=== PATIENT | male | born 1940 | race African-American/Black ===

== ENCOUNTER → 2017-06-20 | Outpatient (CLI) | payer MEDICARE, OTHER ==
--- NOTE | 2017-06-20 10:54 | RADIOLOGY REPORT (SQ) ---
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 Selected color Doppler and spectral images recorded to document blood flow. LIMITATIONS: None. FINDINGS: RIGHT: TESTICLE: Normal size, 2.9 x 4.9 x 1.5 cm. Normal echotexture. Normal blood flow. No mass. EPIDIDYMIS: Normal, 6 x 4 x 4 mm. HYDROCELE OR VARICOCELE: No. HERNIA OR EXTRA-TESTICULAR MASS: No. OTHER: No other significant finding. LEFT: TESTICLE: Small, 2.3 x 2 x 2 cm. Somewhat heterogeneous echotexture with no definable mass. EPIDIDYMIS: Normal. 6 x 5 x 6 mm. HYDROCELE OR VARICOCELE: There is a 3 x 1.4 x 1.9 cm hydrocele. The varicocele described in the left scrotum on the prior study is not identified. HERNIA OR EXTRA-TESTICULAR MASS: No. OTHER: The wall of the scrotum is slightly thickened at 7 mm. IMPRESSION: 1. Small, slightly heterogeneous left testicle. No definable mass. 2. Left hydrocele. 3. Slight thickening of the scrotal wall. TECHNICAL DOCUMENTATION: JOB ID: [id number] [employer]- All Rights Reserved Reading location - IP/workstation name: [email or web address]
== END ==
LOC: RAD 09:20
PROVIDERS: ATTEND Urology
DX: N50.9 Disorder of male genital organs, unspecified (principal)
CPT/HCPCS: 76870; 93976

== ENCOUNTER → 2018-06-24 | Outpatient (CLI) | payer MEDICARE, OTHER ==
--- NOTE | 2018-06-24 15:17 | RADIOLOGY REPORT (SQ) ---
EXAM DESCRIPTION: CT PELVIS COMBO COMPLETED DATE/TIME: 06/24/2018 2:13 pm REASON FOR STUDY: R19.09 OTHER INTRA-ABDOMINAL AND PELVIC SWELLING, MASS AND LUMP R19.09 OTHER INTR A-ABDOMINAL AND PELVIC SWELLING, MASS AND L COMPARISON: None. TECHNIQUE: CT scan of the pelvis performed without and with intravenous contrast. Patient was injected with 83 mL of IV Omnipaque 350. Creatinine 1.2. No oral contrast Images reviewed with soft tissue and bone windows. Reconstructed coronal and sagittal MPR images rev iewed. All images stored on PACS. All CT scanners at this facility use dose modulation, iterative reconstruction, and/or weight based d osing when appropriate to reduce radiation dose to as low as reasonably achievable (ALARA). [facility]: Dose Right [facility]: CareDose [facility]: Dose Right [facility]: Teradose 4D [facility]: Smart Stockr RADIATION DOSE: CT Rad equipment meets quality standard of care and radiation dose reduction techniq ues were employed. CTDIvol: 8.8 - 8.8 mGy. DLP: 1276 mGy-cm. mGy. LIMITATIONS: None. FINDINGS: There is focal swelling along the right inguinal canal, of with soft tissue stranding and inflammation in the subcutaneous fat. No right inguinal hernia is identified. This may represent in flammation or infection along the spermatic cord from epididymo-orchitis. At the bottom edge of the field of view, trace bilateral scrotal hydroceles are present. On the left side, there is mild infla mmation along the inguinal canal/spermatic cord. No adjacent skin cellulitis. Bilateral inguinal ly mph nodes are present measuring about 1 cm in size. The urinary bladder is abnormal. On delayed images 60-67, diffuse thickening of the bladder wall thomas ng the bladder trigone is present worrisome for diffuse tumor involvement. There is circumferential rectal wall thickening and distal sigmoid colon wall thickening on axial modesta ges 57-73. Correlate clinically for colitis. Trace free pelvic cul-de-sac fluid. Bone windows demonstrate no fracture. Mild bilateral hip joint space narrowing. Mild SI joint scler osis. 2 cm diameter right proximal common iliac artery. Visualized infrarenal abdominal aorta and left pro ximal common iliac artery are normal caliber. At the very upper edge of the field of view, tiny stones are seen in the gallbladder. IMPRESSION: Bilateral infectious or inflammatory change in the inguinal canals right greater than le ft thickening of the spermatic cord, and inflammation in the fat along the inguinal regions right gre ater than left. Findings are worrisome for inflammation along the spermatic cord, consider bilateral epididymo-orchitis as the etiology. Findings worrisome for diffuse bladder tumor involvement at the bladder trigone. TECHNICAL DOCUMENTATION: JOB ID: [id number] Quality ID # [id number]: Final reports with documentation of one or more dose reduction techniques (e.g., Au tomated exposure control, adjustment of the mA and/or kV according to patient size, use of iterative reconstruction technique) 2010 [employer]- All Rights Reserved Reading location - IP/workstation name: [email or web address]
== END ==
LOC: RAD 13:02
PROVIDERS: ATTEND Urology
DX: K80.80 Other cholelithiasis without obstruction (principal); R19.09 Other intra-abdominal and pelvic swelling, mass and lump
CPT/HCPCS: 72194; 82565

== ENCOUNTER → 2018-09-15 | Outpatient (CLI) | payer MEDICARE, OTHER ==
--- NOTE | 2018-09-16 11:17 | RADIOLOGY REPORT (SQ) ---
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 RADIONUCLIDE AND DOSE: 11.42 mCi F18 FDG The route of agent administration: Intravenous FASTING BLOOD SUGAR: 103 mg/dl CONTRAST TYPE AND DOSE: No CT contrast given. TECHNIQUE: Blood glucose level was verified. Above dose of FDG was injected intravenously. 2-D seg mented attenuation correction images were obtained from the base of the skull to the midthighs. Nonc ontrast CT images were obtained for attenuation correction and fusion with emission images. CT image s were performed without oral or intravenous contrast and are not sensitive for parenchymal lesions. A series of overlapping emission PET images were obtained. Images reviewed and manipulated at [facility] work station by the radiologist. Images stored on PACS. LIMITATIONS: None. FINDINGS: HEAD AND NECK: No areas of abnormal metabolic activity in the soft tissues of the head and neck. CHEST: No areas of abnormal metabolic activity in the chest. ABDOMEN AND PELVIS: No areas of abnormal metabolic activity in the abdomen or pelvis. Expected physi ologic activity is present in the genitourinary system and bowel. PROXIMAL LOWER EXTREMITIES: No areas of abnormal metabolic activity in the soft tissues of the lower extremities. BONES: Increased uptake 6.9 SUV in the left anterior pubis. No corresponding morphologic lesion. Lo w level uptake 2.2 SUV in the right inguinal canal. ADDITIONAL CT FINDINGS: No additional significant findings on the noncontrast CT images. OTHER: Blood pool 1.9 SUV. Liver 2.5 SUV. IMPRESSION: Hypermetabolic focus left symphysis pubis without corresponding morphologic lesion. No evidence of distant metastasis. TECHNICAL DOCUMENTATION: JOB ID: [id number] [employer]- All Rights Reserved Reading location - IP/workstation name: [email or web address]
== END ==
LOC: RAD 18:05
PROVIDERS: ATTEND Internal Medicine Medical Oncology
DX: C16.8 Malignant neoplasm of overlapping sites of stomach (principal)
CPT/HCPCS: 78815; A9552

== ENCOUNTER 2018-10-25 09:06 | Emergency (ER) | payer MEDICARE, OTHER ==
--- NOTE | 2018-10-25 10:56 | ER Document Report ---
ED Medical Screen (RME) - General Chief Complaint: Back Pain Stated Complaint: BACK PAIN, RIGHT LEG PAIN Time Seen by Provider: 10/25/18 10:50 Primary Care Provider: ELIEZER ORTEZ MD [Primary Care Provider] - Follow up as needed Mode of Arrival: Wheelchair Information source: Patient Notes: 78 yo male presents to ed for back pain since and cannot walk due to pain in foot and knee. Patient is alert oriented respirations regular and unlabored speaking in full sentences. He is answering all questions appropriately. He states his family is at the bedside. He does have a bruised swollen toe which is the reason he states he cannot walk he also has a swollen knee. These were also x-rayed as well as the low back. I have greeted and performed a rapid initial assessment of this patient. A comprehensive ED assessment and evaluation of the patient, analysis of test results and completion of medical decision making process will be conducted by an additional ED providers. TRAVEL OUTSIDE OF THE [place] IN LAST 30 DAYS: No - Related Data Allergies/Adverse Reactions: Tuberculin,Ppd,Multi-Puncture [From Tuberculin PPD Yolanda Test] Allergy (Mild, Verified 08/14/11 16:14) Past Medical History - Social History Cigarette use (# per day): No - former Frequency of alcohol use: None Drug Abuse: None Lives with: Family - Past Medical History Cardiac Medical History: Reports: Hx Hypertension Denies: Hx Hypercholesterolemia EENT Medical History: Denies: None, Eyes, Ears, Nose, Throat, Other Neurological Medical History: Reports: None Endocrine Medical History: Reports: None Renal/ Medical History: Reports: None Malignancy Medical History: Reports Hx Prostate Cancer, Reports Other - stomach GI Medical History: Reports: Hx Colonoscopy, Hx Endoscopy Musculoskeltal Medical History: Reports None Skin Medical History: Reports None Psychiatric Medical History: Reports: None Traumatic Medical History: Reports: None Infectious Medical History: Reports: None. Denies: Hx Hepatitis Past Surgical History: Reports: Hx Abdominal Surgery - Immunizations Hx Diphtheria, Pertussis, Tetanus Vaccination: Yes Physical Exam - Vital signs Vitals: Temp Pulse Resp BP Pulse Ox 98.7 F 74 20 146/88 H 100 10/25/18 09:16 10/25/18 09:16 10/25/18 09:16 10/25/18 09:16 10/25/18 09:16 Course - Vital Signs Vital signs: Temp Pulse Resp BP Pulse Ox 98.7 F 74 20 146/88 H 100 10/25/18 09:16 10/25/18 09:16 10/25/18 09:16 10/25/18 09:16 10/25/18 09:16 - Laboratory Result Diagrams: 10/25/18 11:30 10/25/18 11:30 Doctor's Discharge - Discharge Referrals: ELIEZER ORTEZ MD [Primary Care Provider] - Follow up as needed
[2018-10-25 11:49] LABS: HEMATOCRIT 33.5 % (37.9-51.0); HEMOGLOBIN 11.3 g/dL (13.5-17.0); MEAN CORPUSCULAR HEMOGLOBIN 29.3 pg (27.0-33.4); MEAN CORPUSCULAR HGB CONC 33.6 g/dL (32.0-36.0); MEAN CORPUSCULAR VOLUME 87 fl (80-97); PLATELET COUNT 197 10^3/uL (150-450); RED BLOOD COUNT 3.84 10^6/uL (4.35-5.55); RED CELL DISTRIBUTION WIDTH 14.4 % (11.5-14.0); WHITE BLOOD COUNT 9.5 10^3/uL (4.0-10.5)
[2018-10-25 12:22] LABS: ANISOCYTOSIS SLIGHT; BASOPHILS % (MANUAL) 1 % (0-2); EOSINOPHILS % (MANUAL) 0 % (0-6); LYMPHOCYTES % (MANUAL) 11 % (13-45); MONOCYTES % (MANUAL) 10 % (3-13); PLATELET COMMENT ADEQUATE; SEGMENTED NEUTROPHILS % (MAN) 78 % (42-78); TOTAL CELLS COUNTED 100
--- NOTE | 2018-10-25 13:19 | ER Document Report ---
ED General Pain - General Chief Complaint: Back Pain Stated Complaint: BACK PAIN, RIGHT LEG PAIN Time Seen by Provider: 10/25/18 10:50 Primary Care Provider: ELIEZER ORTEZ MD [Primary Care Provider] - Follow up in 3-5 days Mode of Arrival: Wheelchair TRAVEL OUTSIDE OF THE [place] IN LAST 30 DAYS: No - HPI Notes: Patient presents with lower bilateral paraspinal back pain that occurred on after exercising on Friday. He also stubbed his fourth toe on Friday of last week of his right foot. No recent cough congestion or fevers. The pain in his back intermittently radiates down to his right knee. - Related Data Allergies/Adverse Reactions: Tuberculin,Ppd,Multi-Puncture [From Tuberculin PPD Yolanda Test] Allergy (Mild, Verified 08/14/11 16:14) Past Medical History - General Information source: Patient - Social History Smoking Status: Former Smoker Cigarette use (# per day): No - former Chew tobacco use (# tins/day): No Frequency of alcohol use: None Drug Abuse: None Lives with: Family Family History: Reviewed & Not Pertinent Patient has suicidal ideation: No Patient has homicidal ideation: No - Past Medical History Cardiac Medical History: Reports: Hx Hypertension Denies: Hx Hypercholesterolemia EENT Medical History: Denies: None, Eyes, Ears, Nose, Throat, Other Neurological Medical History: Reports: None Endocrine Medical History: Reports: None Renal/ Medical History: Reports: None. Denies: Hx Peritoneal Dialysis Malignancy Medical History: Reports Hx Prostate Cancer, Reports Other - stomach GI Medical History: Reports: Hx Colonoscopy, Hx Endoscopy. Denies: Hx Hepatitis Musculoskeletal Medical History: Reports None Skin Medical History: Reports None Psychiatric Medical History: Reports: None Traumatic Medical History: Reports: None Infectious Medical History: Reports: None. Denies: Hx Hepatitis Past Surgical History: Reports: Hx Abdominal Surgery - Immunizations Hx Diphtheria, Pertussis, Tetanus Vaccination: Yes Hx Pneumococcal Vaccination: 05/02/11 Review of Systems - Review of Systems Constitutional: No symptoms reported EENT: No symptoms reported Cardiovascular: No symptoms reported Respiratory: No symptoms reported Gastrointestinal: No symptoms reported Genitourinary: No symptoms reported Male Genitourinary: No symptoms reported Musculoskeletal: See HPI Skin: No symptoms reported Hematologic/Lymphatic: No symptoms reported Neurological/Psychological: No symptoms reported Physical Exam - Vital signs Vitals: Temp Pulse Resp BP Pulse Ox 98.7 F 74 20 146/88 H 100 10/25/18 09:16 10/25/18 09:16 10/25/18 09:16 10/25/18 09:16 10/25/18 09:16 - General General appearance: Appears well, Alert - HEENT Head: Normocephalic, Atraumatic - Back Back: Other - Nontender lumbar spine with palpation and with no pain elicited bilateral paraspinal lumbar region. - Extremities General lower extremity: Other - Range of motion of bilateral lower extremities. No signs of infection bilateral lower extremities , minor swelling of fourth digit on right foot. Course - Re-evaluation Re-evalutation: 10/25/18 13:18 Well-appearing patient who has bilateral lumbar back pain that immediately radiates down the right leg to the knee. This all occurred after exercising on Friday. He also has a swollen fourth digit of the right lower extremity after stubbing his toe on Friday of last week. X-rays in progress. Also will obtain urinalysis 10/25/18 13:38 Patient found to have a fourth distal phalanx fracture of right foot. Otherwise, no other fractures or dislocations. Patient symptoms suggesting of sciatica as it radiates down his leg. Will provide 5 days of prednisone with PCP follow-up. Will provide fracture shoe, also discussed cayla taping if patient chose to do that instead. Return precautions provided. 10/25/18 13:40 - Vital Signs Vital signs: Temp Pulse Resp BP Pulse Ox 98.7 F 74 16 172/97 H 100 10/25/18 09:16 10/25/18 09:16 10/25/18 14:02 10/25/18 14:02 10/25/18 14:02 - Laboratory Result Diagrams: 10/25/18 11:30 10/25/18 11:30 Laboratory results interpreted by me: 10/25/18 11:30 RBC 3.84 L Hgb 11.3 L Hct 33.5 L RDW 14.4 H Lymphocytes % (Manual) 11 L Discharge - Discharge Clinical Impression: Right sided sciatica, Distal phalanx fracture of fourth digit Condition: Good Disposition: HOME, SELF-CARE Instructions: Foot Fracture ([facility]), Sciatica ([facility]) Prescriptions: Prednisone [Deltasone 20 mg Tablet] 2 tab PO DAILY 5 Days tablet Referrals: ELIEZER ORTEZ MD [Primary Care Provider] - Follow up in 3-5 days
--- NOTE | 2018-10-25 13:26 | RADIOLOGY REPORT (SQ) ---
EXAM DESCRIPTION: L SPINE WHOLE COMPLETED DATE/TIME: 10/25/2018 1:05 pm REASON FOR STUDY: pain decreased ambulation COMPARISON: None. NUMBER OF VIEWS: Four views including obliques. TECHNIQUE: AP, lateral, oblique, and sacral radiographic images acquired of the lumbar spine. LIMITATIONS: None. FINDINGS: MINERALIZATION: Normal. SEGMENTATION: Normal. No transitional anatomy. ALIGNMENT: Normal. VERTEBRAE: Maintained height. No fracture or worrisome bone lesion. DISCS: Multilevel disc space narrowing with osteophytes. POSTERIOR ELEMENTS: Pedicles and facets are intact. No pars defect or posterior arch defects. Facet arthropathy is present. HARDWARE: None in the spine. PARASPINAL SOFT TISSUES: Normal. PELVIS: Intact as visualized. No fractures or worrisome bone lesions. SI joints intact. OTHER: No other significant finding. IMPRESSION: SPONDYLOSIS WITHOUT BONE LESION OR FRACTURE. TECHNICAL DOCUMENTATION: JOB ID: [id number] [employer]- All Rights Reserved Reading location - IP/workstation name: [email or web address]
--- NOTE | 2018-10-25 13:30 | RADIOLOGY REPORT (SQ) ---
EXAM DESCRIPTION: FOOT RIGHT COMPLETE COMPLETED DATE/TIME: 10/25/2018 1:05 pm REASON FOR STUDY: pain decreased ambulation , stubbed toe, 4th digit swollen. COMPARISON: None. NUMBER OF VIEWS: Three views. TECHNIQUE: AP, lateral and oblique radiographic images acquired of the right foot. LIMITATIONS: None. FINDINGS: MINERALIZATION: Normal. BONES: There is a oblique linear lucency at the 4th distal phalanx extending into the distal interpha langeal joint, suggestive of a nondisplaced fracture. SOFT TISSUES: There is diffuse soft tissue swelling at the 4th toe. No radiopaque foreign body. Vas cular calcifications are noted. IMPRESSION: Diffuse soft tissue swelling at the right 4th toe. Oblique linear lucency at the 4th di stal phalanx extending into the the DIP joint, suggestive of a nondisplaced fracture. Please correla te with point tenderness. TECHNICAL DOCUMENTATION: JOB ID: [id number] 2010 [employer]- All Rights Reserved Reading location - IP/workstation name: [email or web address]
--- NOTE | 2018-10-25 13:33 | RADIOLOGY REPORT (SQ) ---
EXAM DESCRIPTION: HIP RIGHT AP/LATERAL COMPLETED DATE/TIME: 10/25/2018 1:05 pm REASON FOR STUDY: pain decreased ambulation COMPARISON: CT pelvis 06/24/2018. NUMBER OF VIEWS: Two views. TECHNIQUE: AP pelvis and additional frog-leg view of the right hip. LIMITATIONS: None. FINDINGS: There is no acute fracture or dislocation. The pelvic ring is intact. The bilateral hip joints are maintained. Degenerative changes at the visualized lower lumbar spine, at the bilateral s acroiliac joints and the the pubic symphysis. The soft tissues are unremarkable. IMPRESSION: No radiographic evidence of acute injury. COMMENT: Pelvic fractures are often occult on plain radiographs. If strong clinical suspicion for fracture, recommend CT or MR. TECHNICAL DOCUMENTATION: JOB ID: [id number] 2010 [employer]- All Rights Reserved Reading location - IP/workstation name: [email or web address]
[2018-10-25 14:10] VITALS: BP 172/97
== END 2018-10-25 14:17 | disposition home or self-care (01) ==
LOC: ER 09:06
DX: M54.41 Lumbago with sciatica, right side (principal); S92.531A Displaced fracture of distal phalanx of right lesser toe(s), initial encounter for closed fracture; W22.09XA Striking against other stationary object, initial encounter; I10 Essential (primary) hypertension; Z85.46 Personal history of malignant neoplasm of prostate
CPT/HCPCS: 36415; 72110; 85025; 99283

== ENCOUNTER 2018-11-01 09:46 | Emergency (ER) | payer MEDICARE, OTHER ==
--- NOTE | 2018-11-01 10:13 | ER Document Report ---
ED Medical Screen (RME) - General Chief Complaint: Toe Injury Stated Complaint: TOE PAIN Time Seen by Provider: 11/01/18 10:04 Primary Care Provider: ELIEZER ORTEZ MD [Primary Care Provider] - Follow up as needed Notes: Patient is a 78-year-old male with a history of cancer presents to the emergency department with a chief complaint of a right toe infection. Patient states 1 week ago he stubbed his toe and was diagnosed noticed here in the emergency department with a fracture. Patient states that 24 hours after his injury he developed increased swelling, redness and drainage from the site. The right reports that over the past week the swelling redness has increased and gotten worse. reports purulent yellow discharge. Patient denies numbness or tingling to his toe. Patient reports he has been using his walking boot and denies any new injury. Patient denies a history of diabetes. 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 Patient denies fever. Patient reports chronic right shoulder and hip pain. TRAVEL OUTSIDE OF THE [place] IN LAST 30 DAYS: No - Related Data Allergies/Adverse Reactions: Tuberculin,Ppd,Multi-Puncture [From Tuberculin PPD Yolanda Test] Allergy (Mild, Verified 11/01/18 09:47) Past Medical History - Past Medical History Cardiac Medical History: Reports: Hx Hypertension Denies: Hx Hypercholesterolemia Renal/ Medical History: Denies: Hx Peritoneal Dialysis Malignancy Medical History: Reports Hx Prostate Cancer GI Medical History: Reports: Hx Colonoscopy, Hx Endoscopy. Denies: Hx Hepatitis Infectious Medical History: Denies: Hx Hepatitis Past Surgical History: Reports: Hx Abdominal Surgery - Immunizations Hx Diphtheria, Pertussis, Tetanus Vaccination: Yes Physical Exam - Vital signs Vitals: Temp Pulse Resp BP Pulse Ox 98.2 F 71 15 121/67 97 11/01/18 10:11/01/18 10:01 11/01/18 10:11/01/18 10:11/01/18 10:01 - Extremities Notes: Edema, erythema and purulent discharge noted to the fourth digit on the right foot. There is a small amount of necrotic tissue noted on the dorsal aspect of the digit. Patient has a strong +2 dorsalis pedis pulse. Course - Re-evaluation Re-evalutation: 11/01/18 10:13 I have greeted and performed a rapid initial assessment of this patient. A comprehensive ED assessment and evaluation of the patient, analysis of test results and completion of the medical decision making process will be conducted by additional ED providers. - Vital Signs Vital signs: Temp Pulse Resp BP Pulse Ox 98.2 F 71 15 121/67 97 11/01/18 10:01 11/01/18 10:11/01/18 10:01 11/01/18 10:11/01/18 10:01 Doctor's Discharge - Discharge Referrals: ELIEZER ORTEZ MD [Primary Care Provider] - Follow up as needed
[2018-11-01 10:32] LABS: ABSOLUTE LYMPHOCYTES (AUTO) 0.4 10^3/uL (0.5-4.7); ABSOLUTE MONOCYTES (AUTO) 0.7 10^3/uL (0.1-1.4); ABSOLUTE NEUT (AUTO) 6.9 10^3/uL (1.7-8.2); BASOPHILS % (AUTO) 0.1 % (0-2); EOSINOPHILS % (AUTO) 0.6 % (0-6); HEMATOCRIT 30.7 % (37.9-51.0); HEMOGLOBIN 10.2 g/dL (13.5-17.0); LYMPHOCYTES % (AUTO) 5.3 % (13-45); MEAN CORPUSCULAR HEMOGLOBIN 28.8 pg (27.0-33.4); MEAN CORPUSCULAR HGB CONC 33.1 g/dL (32.0-36.0); MEAN CORPUSCULAR VOLUME 87 fl (80-97); MONOCYTES % (AUTO) 8.2 % (3-13); PLATELET COUNT 384 10^3/uL (150-450); RED BLOOD COUNT 3.54 10^6/uL (4.35-5.55); RED CELL DISTRIBUTION WIDTH 14.7 % (11.5-14.0); SEGMENTED NEUTROPHILS % (AUTO) 85.8 % (42-78); TOTAL CELLS COUNTED % (AUTO) 100 %
[2018-11-01 10:42] LABS: BLOOD UREA NITROGEN 26 mg/dL (7-20); CALCIUM 9.2 mg/dL (8.4-10.2); CHLORIDE 95 mmol/L (98-107); GLUCOSE 154 mg/dL (75-110)
[2018-11-01 10:55] LABS: ANION GAP 7 (5-19)
[2018-11-01 10:56] LABS: CARBON DIOXIDE 39 mmol/L (22-30)
[2018-11-01] MEDS ORDERED: CEPHALEXIN 500 MG CAPSULE PO ONE (11:41)
--- NOTE | 2018-11-01 11:45 | ER Document Report ---
ED General - General Chief Complaint: Toe Injury Stated Complaint: TOE PAIN Time Seen by Provider: 11/01/18 10:04 Primary Care Provider: ELIEZER ORTEZ MD [ACTIVE STAFF] - Follow up as needed TRAVEL OUTSIDE OF THE [place] IN LAST 30 DAYS: No - HPI Notes: Patient is a 78-year-old male brought into the emergency department for evaluation with . Evidently she was seen here a little over a week ago. He had a broken toe after being on a cruise. He was placed in a walking boot. Shortly after that he developed a blister over the top of the foot. The blister popped, now he has been having what appears to be purulent drainage to the . No fevers or chills. No nausea or vomiting. The pain is "tolerable" to the patient but really is not worsening. - Related Data Allergies/Adverse Reactions: Tuberculin,Ppd,Multi-Puncture [From Tuberculin PPD Yolanda Test] Allergy (Mild, Verified 11/01/18 09:47) Past Medical History - General Information source: Patient, Relative - Social History Smoking Status: Former Smoker Chew tobacco use (# tins/day): No Frequency of alcohol use: None Drug Abuse: None Family History: Reviewed & Not Pertinent Patient has suicidal ideation: No Patient has homicidal ideation: No - Past Medical History Cardiac Medical History: Reports: Hx Hypertension Denies: Hx Hypercholesterolemia Renal/ Medical History: Denies: Hx Peritoneal Dialysis Malignancy Medical History: Reports Hx Prostate Cancer, Reports Other - Gastric cancer GI Medical History: Reports: Hx Colonoscopy, Hx Endoscopy. Denies: Hx Hepatitis Infectious Medical History: Denies: Hx Hepatitis Past Surgical History: Reports: Hx Abdominal Surgery - Immunizations Hx Diphtheria, Pertussis, Tetanus Vaccination: Yes Hx Pneumococcal Vaccination: 05/02/11 Review of Systems - Review of Systems Constitutional: No symptoms reported EENT: No symptoms reported Cardiovascular: No symptoms reported Respiratory: No symptoms reported Gastrointestinal: No symptoms reported Genitourinary: No symptoms reported Musculoskeletal: See HPI Skin: See HPI Neurological/Psychological: No symptoms reported Physical Exam - Vital signs Vitals: Temp Pulse Resp BP Pulse Ox 98.2 F 71 15 121/67 97 11/01/18 10:11/01/18 10:11/01/18 10:11/01/18 10:11/01/18 10:01 - Notes Notes: This is a frail-appearing 78-year-old male who appears his stated age in acute distress. Head is normal cephalic and atraumatic. Pupils are equal and round. Oral mucosa is moist. Heart is regular rate and rhythm, lungs are clear to oscillation bilaterally. Examination of the right lower extremity yields a moderate amount of edema to the right fourth toe. There is an eschar on the dorsal aspect of the toe, over the distal phalanx, measures approximately 1.5 cm in diameter. Sensation is intact around. He does have a small wound on the lateral aspect of the toe with significant granulation tissue noted. No significant erythema, induration appreciated. No lymphangitic streaking. Distally neurovascularly intact. Course - Re-evaluation Re-evalutation: 11/01/18 12:21 Patient presents to the emergency department for evaluation of drainage from his right fourth toe. I did review this film and blood work. There is no clear fracture, no obvious signs of significant infection. In fact it appears mostly to me that the wound is a likely denuded fracture blister. It may need some eventual wound care, but I do not see any overt signs of infection at this time. The wound was thoroughly cleansed and dressed. I will get and start him on some Keflex. He is to follow-up with his primary care provider on Friday. He may need wound debridement and further care at that point. He is to return to the ED with worsening or new concerning symptoms of any sort. - Vital Signs Vital signs: Temp Pulse Resp BP Pulse Ox 98.2 F 71 15 121/67 97 11/01/18 10:01 11/01/18 10:01 11/01/18 10:01 11/01/18 10:01 11/01/18 10:01 - Laboratory Result Diagrams: 11/01/18 10:14 11/01/18 10:14 Laboratory results interpreted by me: 11/01/18 11/01/18 10:14 10:14 RBC 3.54 L Hgb 10.2 L Hct 30.7 L RDW 14.7 H Lymph % (Auto) 5.3 L Absolute Lymphs (auto) 0.4 L Seg Neutrophils % 85.8 H Chloride 95 L Carbon Dioxide 39 H BUN 26 H Glucose 154 H - Diagnostic Test Radiology reviewed: Image reviewed, Reports reviewed Radiology results interpreted by me: 11/01/18 12:24 Foot X-Ray 11/01/18 10:09 IMPRESSION: NORMAL STUDY. Discharge - Discharge Clinical Impression: Injury of right toe Qualifiers: Encounter type: initial encounter Qualified Code(s): S99.921A - Unspecified injury of right foot, initial encounter Open wound of fourth toe of right foot Qualifiers: Encounter type: initial encounter Qualified Code(s): S91.104A - Unspecified open wound of right lesser toe(s) without damage to nail, initial encounter Condition: Stable Disposition: HOME, SELF-CARE Instructions: Dressing Instructions for Open Wounds ([facility]) Additional Instructions: Keep wound clean with soap and water. Dress daily. Follow-up with your primary care provider this week. You may require debridement of this wound. Take antibiotic as prescribed. Return to the emergency department with worsening or new concerning symptoms of any sort. Referrals: ELIEZER ORTEZ MD [ACTIVE STAFF] - Follow up as needed
--- NOTE | 2018-11-01 12:16 | RADIOLOGY REPORT (SQ) ---
EXAM DESCRIPTION: FOOT RIGHT COMPLETE COMPLETED DATE/TIME: 11/01/2018 11:31 am REASON FOR STUDY: right 4th toe infection, + swelling and redness COMPARISON: 10/25/2018 NUMBER OF VIEWS: Three views right foot LIMITATIONS: None. FINDINGS: There is no acute or significant bone, joint or soft tissue abnormality. OTHER: No other significant finding. IMPRESSION: NORMAL STUDY. TECHNICAL DOCUMENTATION: JOB ID: [id number] Reading location - IP/workstation name: [email or web address]
[2018-11-01 12:59] VITALS: BP 121/61
== END 2018-11-01 12:55 | disposition home or self-care (01) ==
LOC: ER 09:46
DX: S91.104A Unspecified open wound of right lesser toe(s) without damage to nail, initial encounter (principal); X58.XXXA Exposure to other specified factors, initial encounter; I10 Essential (primary) hypertension; Z88.7 Allergy status to serum and vaccine; Z87.891 Personal history of nicotine dependence
CPT/HCPCS: 99283; 36415; 85025; 80048; 73630; A9270

== ENCOUNTER → 2018-11-16 | Outpatient (CLI) | payer MEDICARE, OTHER ==
[2018-11-16 08:43] LABS: ABSOLUTE BASOPHILS # (AUTO) 0.1 10^3/uL (0.0-0.2); ABSOLUTE EOSINOPHILS # (AUTO) 0.1 10^3/uL (0.0-0.6); ABSOLUTE MONOCYTES (AUTO) 0.8 10^3/uL (0.1-1.4); ABSOLUTE NEUT (AUTO) 16.4 10^3/uL (1.7-8.2); BASOPHILS % (AUTO) 0.7 % (0-2); EOSINOPHILS % (AUTO) 0.7 % (0-6); HEMATOCRIT 33.5 % (37.9-51.0); HEMOGLOBIN 10.7 g/dL (13.5-17.0); LYMPHOCYTES % (AUTO) 5.4 % (13-45); MEAN CORPUSCULAR HEMOGLOBIN 27.8 pg (27.0-33.4); MEAN CORPUSCULAR HGB CONC 32.1 g/dL (32.0-36.0); MEAN CORPUSCULAR VOLUME 87 fl (80-97); MONOCYTES % (AUTO) 4.2 % (3-13); PLATELET COUNT 310 10^3/uL (150-450); RED BLOOD COUNT 3.86 10^6/uL (4.35-5.55); RED CELL DISTRIBUTION WIDTH 15.2 % (11.5-14.0); TOTAL CELLS COUNTED % (AUTO) 100 %; WHITE BLOOD COUNT 18.5 10^3/uL (4.0-10.5)
[2018-11-16 09:00] LABS: ALBUMIN 3.1 g/dL (3.5-5.0); ALKALINE PHOSPHATASE 157 U/L (38-126); ANION GAP 8 (5-19); ASPARTATE AMINO TRANSFERASE 26 U/L (17-59); BILIRUBIN,DIRECT 0.2 mg/dL (0.0-0.4); BILIRUBIN,TOTAL 0.7 mg/dL (0.2-1.3); BLOOD UREA NITROGEN 11 mg/dL (7-20); CARBON DIOXIDE 31 mmol/L (22-30); CHLORIDE 96 mmol/L (98-107); GLUCOSE 155 mg/dL (75-110); POTASSIUM 3.8 mmol/L (3.6-5.0); TOTAL PROTEIN 6.5 g/dL (6.3-8.2)
== END ==
LOC: LAB 08:14
PROVIDERS: ATTEND Internal Medicine Medical Oncology
DX: C80.1 Malignant (primary) neoplasm, unspecified (principal)
CPT/HCPCS: 36415; 80053; 85025

== ENCOUNTER 2018-11-17 08:06 | Outpatient (CLI) | payer MEDICARE, OTHER ==
[~2018-11-17 08:06] MED LIST: CONTAINER EMPTY IV PRN; DEXAMETHASONE SOD PHOSPHATE IV PRN; DEXTROSE 5% IV PRN; DEXTROSE 5%-WATER 250 ML IV PRN; FLUOROURACIL IV PRN; LEUCOVORIN CALCIUM IV PRN; NORMAL SALINE IV PRN; OXALIPLATIN 150 MG in DEXTROSE 5%-WATER 250 ML IV PRN; PALONOSETRON 0.25 MG/5 ML SDV IV PRN; WATER IV PRN
[2018-11-17 08:17] VITALS: BP 133/78
== END 2018-11-17 12:15 | disposition home or self-care (01) ==
LOC: II 08:06 → 5TH 08:13 → II 12:15
PROVIDERS: ATTEND Internal Medicine Medical Oncology
PROC: 3E04305 Introduction of Other Antineoplastic into Central Vein, Percutaneous Approach (ICD-10-PCS; principal; 2018-11-17)
PROC: 3E0433Z Introduction of Anti-inflammatory into Central Vein, Percutaneous Approach (ICD-10-PCS; 2018-11-17)
PROC: 3E043GC Introduction of Other Therapeutic Substance into Central Vein, Percutaneous Approach (ICD-10-PCS; 2018-11-17)
DX: Z51.11 Encounter for antineoplastic chemotherapy (principal); C16.9 Malignant neoplasm of stomach, unspecified; C79.9 Secondary malignant neoplasm of unspecified site
CPT/HCPCS: 96413; 96415; 96416; 96367; 96375; 96417; J0640; A9270; J9190; J7060 ×2; J1100; J1642; J9263; J2469; 96368; J3490

== ENCOUNTER 2018-11-18 08:02 | Outpatient (CLI) | payer MEDICARE, OTHER ==
[~2018-11-18 08:02] MED LIST changes: -OXALIPLATIN 150 MG in DEXTROSE 5%-WATER 250 ML IV PRN
[2018-11-18 08:11] VITALS: BP 142/68
== END 2018-11-18 11:59 | disposition home or self-care (01) ==
LOC: II 08:02 → 5TH 08:07 → II 11:59
PROVIDERS: ATTEND Internal Medicine Medical Oncology
PROC: 3E04305 Introduction of Other Antineoplastic into Central Vein, Percutaneous Approach (ICD-10-PCS; principal; 2018-11-18)
PROC: 3E0433Z Introduction of Anti-inflammatory into Central Vein, Percutaneous Approach (ICD-10-PCS; 2018-11-18)
PROC: 3E043GC Introduction of Other Therapeutic Substance into Central Vein, Percutaneous Approach (ICD-10-PCS; 2018-11-18)
DX: Z51.11 Encounter for antineoplastic chemotherapy (principal); C16.9 Malignant neoplasm of stomach, unspecified; C79.9 Secondary malignant neoplasm of unspecified site
CPT/HCPCS: 96416; 96365; 96366; 96375; J0640; A9270; J9190; J7060; J1100; J2469; 96367; 96413; 96415; J3490

== ENCOUNTER 2018-11-30 13:46 | Emergency (ER) | payer MEDICARE, OTHER ==
--- NOTE | 2018-11-30 14:37 | ER Document Report ---
ED Medical Screen (RME) - General Chief Complaint: Abnormal Lab Results Stated Complaint: ABNORMAL LABS Time Seen by Provider: 11/30/18 14:28 Primary Care Provider: JUAN THOMPSON DPM [Primary Care Provider] - Follow up as needed TRAVEL OUTSIDE OF THE [place] IN LAST 30 DAYS: No - HPI Notes: 11/30/18 14:36 Patient is a 78-year-old male currently undergoing chemotherapy and finished radiation last week who presents for potassium of 2.9 at check about 5 and half hours ago. Patient states that he is otherwise doing well and is eating and drinking without difficulty. He is urinating normally and having normal bowel movements. No fever. No chest pain/shortness of breath. I have treated and performed a rapid initial assessment of this patient. A comprehensive ED assessment and evaluation of the patient, analysis of test results and completion of medical decision making process will be conducted by additional ED providers. PHYSICAL EXAMINATION: GENERAL: Well-appearing, well-nourished and in no acute distress. A&Ox4. Answers questions appropriately. - Related Data Allergies/Adverse Reactions: Tuberculin,Ppd,Multi-Puncture [From Tuberculin PPD Yolanda Test] Allergy (Mild, Verified 11/01/18 09:47) Past Medical History - Social History Chew tobacco use (# tins/day): No Drug Abuse: None - Past Medical History Cardiac Medical History: Reports: Hx Hypertension Denies: Hx Hypercholesterolemia Renal/ Medical History: Denies: Hx Peritoneal Dialysis Malignancy Medical History: Reports Hx Prostate Cancer GI Medical History: Reports: Hx Colonoscopy, Hx Endoscopy. Denies: Hx Hepatitis Infectious Medical History: Denies: Hx Hepatitis Past Surgical History: Reports: Hx Abdominal Surgery - Immunizations Hx Diphtheria, Pertussis, Tetanus Vaccination: Yes Physical Exam - Vital signs Vitals: Temp Pulse Resp BP Pulse Ox 98.0 F 68 20 131/72 H 95 11/30/18 14:17 11/30/18 14:17 11/30/18 14:17 11/30/18 14:17 11/30/18 14:17 Course - Vital Signs Vital signs: Temp Pulse Resp BP Pulse Ox 98.0 F 68 20 131/72 H 95 11/30/18 14:17 11/30/18 14:17 11/30/18 14:17 11/30/18 14:17 11/30/18 14:17 Doctor's Discharge - Discharge Referrals: JUAN THOMPSON DPM [Primary Care Provider] - Follow up as needed
[2018-11-30] MEDS ORDERED: POTASSIUM CHLORIDE 10 MEQ CAPSULE.ER PO ONE (14:38)
[2018-11-30 16:16] LABS: ABSOLUTE BASOPHILS # (AUTO) 0.1 10^3/uL (0.0-0.2); ABSOLUTE EOSINOPHILS # (AUTO) 0.2 10^3/uL (0.0-0.6); ABSOLUTE LYMPHOCYTES (AUTO) 0.4 10^3/uL (0.5-4.7); ABSOLUTE MONOCYTES (AUTO) 0.9 10^3/uL (0.1-1.4); ABSOLUTE NEUT (AUTO) 4.2 10^3/uL (1.7-8.2); BASOPHILS % (AUTO) 0.9 % (0-2); EOSINOPHILS % (AUTO) 3.8 % (0-6); HEMATOCRIT 27.2 % (37.9-51.0); HEMOGLOBIN 8.9 g/dL (13.5-17.0); LYMPHOCYTES % (AUTO) 6.8 % (13-45); MEAN CORPUSCULAR HEMOGLOBIN 28.4 pg (27.0-33.4); MEAN CORPUSCULAR HGB CONC 32.8 g/dL (32.0-36.0); MEAN CORPUSCULAR VOLUME 86 fl (80-97); PLATELET COUNT 241 10^3/uL (150-450); RED BLOOD COUNT 3.15 10^6/uL (4.35-5.55); RED CELL DISTRIBUTION WIDTH 16.2 % (11.5-14.0); SEGMENTED NEUTROPHILS % (AUTO) 73.5 % (42-78); TOTAL CELLS COUNTED % (AUTO) 100 %; WHITE BLOOD COUNT 5.7 10^3/uL (4.0-10.5)
--- NOTE | 2018-11-30 16:21 | ER Document Report ---
ED General - General Chief Complaint: Abnormal Lab Results Stated Complaint: ABNORMAL LABS Time Seen by Provider: 11/30/18 14:28 Primary Care Provider: JUAN THOMPSON DPM [ACTIVE STAFF] - Follow up as needed TRAVEL OUTSIDE OF THE [place] IN LAST 30 DAYS: No - HPI Notes: Patient is a 78-year-old gentleman who presents to the emergency department for evaluation. He had routine labs performed and was told he was hypokalemic. He was told he would need to "go in and get the potassium replaced IV." The patient states he not had any medication changes. He denies any dizziness. No chest pain or shortness of breath. No weakness. 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 Patient is status post significant gastrectomy in the past. He is waiting to establish care with Dr. Eid this week. - Related Data Allergies/Adverse Reactions: Tuberculin,Ppd,Multi-Puncture [From Tuberculin PPD Yolanda Test] Allergy (Mild, Verified 11/01/18 09:47) Past Medical History - General Information source: Patient, Relative - Social History Smoking Status: Former Smoker Chew tobacco use (# tins/day): No Drug Abuse: None Family History: Reviewed & Not Pertinent Patient has suicidal ideation: No Patient has homicidal ideation: No - Past Medical History Cardiac Medical History: Reports: Hx Hypertension Denies: Hx Hypercholesterolemia Renal/ Medical History: Denies: Hx Peritoneal Dialysis Malignancy Medical History: Reports Hx Prostate Cancer, Reports Other - Adenocarcinoma of the stomach GI Medical History: Reports: Hx Colonoscopy, Hx Endoscopy. Denies: Hx Hepatitis Infectious Medical History: Denies: Hx Hepatitis Past Surgical History: Reports: Hx Abdominal Surgery - Gastrectomy - Immunizations Hx Diphtheria, Pertussis, Tetanus Vaccination: Yes Hx Pneumococcal Vaccination: 05/02/11 Review of Systems - Review of Systems Constitutional: No symptoms reported EENT: No symptoms reported Cardiovascular: No symptoms reported Respiratory: No symptoms reported Gastrointestinal: No symptoms reported Genitourinary: No symptoms reported Musculoskeletal: No symptoms reported Skin: No symptoms reported Neurological/Psychological: No symptoms reported Physical Exam - Vital signs Vitals: Temp Pulse Resp BP Pulse Ox 98.0 F 68 20 131/72 H 95 11/30/18 14:17 11/30/18 14:17 11/30/18 14:17 11/30/18 14:17 11/30/18 14:17 - Notes Notes: This is a cachectic appearing 78-year-old male, appears stated age, no acute distress. Vital signs reviewed, please refer to chart. Head is normocephalic, atraumatic. Pupils equal round, reactive to light. Neck is supple without meningismus. Heart is regular rate and rhythm. Lungs are clear to auscultation bilaterally. Abdomen is scaphoid, nontender, normoactive bowel sounds throughout. Midline surgical scar oriented vertically with no signs of dehiscence or infection. Extremities without cyanosis, clubbing. Posterior calves are nontender. Peripheral pulses are equal. Skin is warm and dry. Patient is awake, alert, neurological exam is nonfocal. Course - Re-evaluation Re-evalutation: 11/30/18 16:20 Patient presents emergency department for evaluation. Laboratory investigations were ordered. Patient be given oral potassium, but my suspicion is that secondary to his gastrectomy he would have some difficulty absorbing it. Awaiting magnesium level as well, which was not checked. Patient's port in his right arm was accessed. He is stable at this time. We will continue to [facility]. 11/30/18 16:40 Patient's potassium is found to be 2.7. His mag is normal. I am concerned that this patient will not absorb this orally. He is given another 60 potassium via IV, through his port in his arm. Patient will be written up for discharge. He is to follow-up with primary care in 1 to 2 days, return to the ED with worsening. - Vital Signs Vital signs: Temp Pulse Resp BP Pulse Ox 98.0 F 68 20 131/72 H 95 11/30/18 14:17 11/30/18 14:17 11/30/18 14:17 11/30/18 14:17 11/30/18 14:17 - Laboratory Result Diagrams: 11/30/18 15:49 11/30/18 15:49 Laboratory results interpreted by me: 11/30/18 11/30/18 15:49 15:49 RBC 3.15 L Hgb 8.9 L Hct 27.2 L RDW 16.2 H Lymph % (Auto) 6.8 L [place] % (Auto) 15.0 H Absolute Lymphs (auto) 0.4 L Potassium 2.7 L* Chloride 96 L Carbon Dioxide 35 H Total Protein 6.1 L Albumin 3.1 L - EKG Interpretation by Me Additional EKG results interpreted by me: 11/30/18 16:21 Sinus bradycardia with a rate of 53 bpm. First-degree AV block. Normal axis. Nonspecific ST changes, but no acute changes concerning for ischemia or i nfarction. Discharge - Discharge Clinical Impression: Hypokalemia Condition: Stable Disposition: HOME, SELF-CARE Instructions: Hypokalemia ([facility]) Additional Instructions: Take potassium daily as prescribed. Follow-up with your doctor this week, he should have your potassium rechecked. Return to the emergency department with worsening or new concerning symptoms. Prescriptions: Potassium Chloride 10 meq PO BID #8 capsule.er Referrals: JUAN THOMPSON DPM [ACTIVE STAFF] - Follow up as needed
[2018-11-30 16:36] LABS: ALBUMIN 3.1 g/dL (3.5-5.0); ALKALINE PHOSPHATASE 86 U/L (38-126); ANION GAP 7 (5-19); ASPARTATE AMINO TRANSFERASE 24 U/L (17-59); BILIRUBIN,DIRECT 0.2 mg/dL (0.0-0.4); BILIRUBIN,TOTAL 0.5 mg/dL (0.2-1.3); BLOOD UREA NITROGEN 12 mg/dL (7-20); CALCIUM 8.6 mg/dL (8.4-10.2); CARBON DIOXIDE 35 mmol/L (22-30); CHLORIDE 96 mmol/L (98-107); GLUCOSE 87 mg/dL (75-110); TOTAL PROTEIN 6.1 g/dL (6.3-8.2)
[2018-11-30 16:39] LABS: POTASSIUM 2.7 mmol/L (3.6-5.0)
[2018-11-30] MEDS ORDERED: POTASSI CL 20 MEQ/50 ML RIDER 20 MEQ/50 ML RTUPB IV SCH (16:40)
[2018-11-30] MEDS: POTASSI CL 20 MEQ/50 ML RIDER 20 MEQ/50 ML RTUPB IV SCH ×2 (17:08→18:55)
[2018-11-30 21:12] VITALS: BP 144/97
--- NOTE | 2018-12-01 20:55 | EKG REPORT ---
SEVERITY:- NORMAL ECG - SINUS RHYTHM : Confirmed by: Kimberly Hoffman MD 01-Dec-2018 20:55:02
== END 2018-11-30 21:25 | disposition home or self-care (01) ==
LOC: ER 13:46
DX: E87.6 Hypokalemia (principal); I10 Essential (primary) hypertension; Z85.46 Personal history of malignant neoplasm of prostate
CPT/HCPCS: 93005; 36415; 83735; 87070; 93010; J3480; J1642; 36591; 96365; 96366; 99285

== ENCOUNTER → 2018-11-30 | Outpatient (CLI) | payer MEDICARE, OTHER ==
[2018-11-30 10:24] LABS: ABSOLUTE EOSINOPHILS # (AUTO) 0.2 10^3/uL (0.0-0.6); ABSOLUTE LYMPHOCYTES (AUTO) 0.3 10^3/uL (0.5-4.7); ABSOLUTE MONOCYTES (AUTO) 0.5 10^3/uL (0.1-1.4); ABSOLUTE NEUT (AUTO) 4.1 10^3/uL (1.7-8.2); BASOPHILS % (AUTO) 0.8 % (0-2); EOSINOPHILS % (AUTO) 4.1 % (0-6); HEMATOCRIT 29.2 % (37.9-51.0); HEMOGLOBIN 9.5 g/dL (13.5-17.0); LYMPHOCYTES % (AUTO) 6.1 % (13-45); MEAN CORPUSCULAR HGB CONC 32.4 g/dL (32.0-36.0); MEAN CORPUSCULAR VOLUME 86 fl (80-97); MONOCYTES % (AUTO) 10.3 % (3-13); PLATELET COUNT 250 10^3/uL (150-450); RED BLOOD COUNT 3.39 10^6/uL (4.35-5.55); RED CELL DISTRIBUTION WIDTH 16.3 % (11.5-14.0); SEGMENTED NEUTROPHILS % (AUTO) 78.7 % (42-78); TOTAL CELLS COUNTED % (AUTO) 100 %; WHITE BLOOD COUNT 5.2 10^3/uL (4.0-10.5)
[2018-11-30 10:58] LABS: ALBUMIN 3.3 g/dL (3.5-5.0); ALKALINE PHOSPHATASE 88 U/L (38-126); ANION GAP 6 (5-19); ASPARTATE AMINO TRANSFERASE 24 U/L (17-59); BILIRUBIN,DIRECT 0.1 mg/dL (0.0-0.4); BLOOD UREA NITROGEN 11 mg/dL (7-20); C-REACTIVE PROTEIN 27.2 mg/L (<10.0); CALCIUM 8.8 mg/dL (8.4-10.2); CARBON DIOXIDE 37 mmol/L (22-30); CHLORIDE 96 mmol/L (98-107); GLUCOSE 137 mg/dL (75-110); TOTAL PROTEIN 6.6 g/dL (6.3-8.2)
[2018-11-30 11:04] LABS: POTASSIUM 2.9 mmol/L (3.6-5.0)
[2018-11-30 11:05] LABS: ERYTHROCYTE SEDIMENTATION RATE 61 mm/hr (0-20)
--- NOTE | 2018-12-01 10:02 | XCELERA REPORT ---
[address] [address] Lower Extremity Arterial Evaluation Name: NOY RIDER Age: 78 yrs Gender: Male : 1940 Patient Status: Outpatient Patient Location: [facility] Study Date: 11/30/2018 09:18 AM Procedure: A color flow and duplex scan of the lower extremity arteries was performed bilaterally with velocity and waveform anaylsis. Ankle brachial indicies performed. Reason For Study: ULCER OF RIGHT FOOT Ordering Physician: JUAN THOMPSON Performed By: William Graham Measurements and Calculations Right Left LICENSED MORTGAGE LOAN OFFICER PSV 88.8 82.5 cm/sec Prox PFA PSV -59.0 -74.6 cm/sec Prox SFA PSV 90.4 81.2 cm/sec Mid SFA PSV -110.5 -112.5cm/sec Dist SFA PSV -149.4 -104.8cm/sec Prox Pop A PSV 75.4 41.2 cm/sec Dist TERESA PSV 76.6 33.5 cm/sec Dist SYSTEMS OPERATOR PSV 54.4 -91.2 cm/sec Kunal Pedis PSV -46.2 83.8 cm/sec Right Side Arterial Evaluation Normal velocity and triphasic waveforms noted from the Common Femoral artery to the infrageniculate vessels . Biphasic with normal velocity in the Deep Femoral and Dorsalis Pedis arteries. Ankle Brachial index 1.31. Left Side Arterial Evaluation Normal velocity and triphasic waveforms noted from the Common Femoral artery to the infrageniculate vessels . Ankle Brachial index 1.15. Interpretation Summary Mild hemodynamically significant lesions in the right lower extremity only, on duplex imaging, at rest. No hemodynamically significant lesions in the left lower extremity only, on duplex imaging, at rest. Duplex imaging normal, bilaterally , except for slight changes in the right Dorsalis Pedis. JAYME's are normal, suggesting no significant arterial compromise. : JUAN THOMPSON > Valente Sesay
== END ==
LOC: SP 08:56
PROVIDERS: ATTEND Preventive Medicine Undersea and Hyperbaric Medicine
DX: E11.621 Type 2 diabetes mellitus with foot ulcer (principal); L97.514 Non-pressure chronic ulcer of other part of right foot with necrosis of bone
CPT/HCPCS: 36415; 80053; 83036; 85025; 85652; 86140; 93922; 93925

== ENCOUNTER → 2018-12-15 | Outpatient (CLI) | payer MEDICARE, OTHER ==
--- NOTE | 2018-12-15 10:17 | RADIOLOGY REPORT (SQ) ---
EXAM DESCRIPTION: FOOT RIGHT COMPLETE COMPLETED DATE/TIME: 12/15/2018 9:24 am REASON FOR STUDY: (L97.514)NON-PRS CHRONIC ULCER OTH PRT RIGHT FOOT W NECROSIS OF BONE L97.514 NON- PRS CHRONIC ULCER OTH PRT RIGHT FOOT W NECROSIS E11.621 TYPE 2 DIABETES MELLITUS WITH FOOT ULCER COMPARISON: 11/01/2018 NUMBER OF VIEWS: Three views. TECHNIQUE: AP, lateral and oblique radiographic images acquired of the right foot. LIMITATIONS: None. FINDINGS: MINERALIZATION: Normal. BONES: Since the prior examination, significant interval change in the appearance of the middle pha lanx of the fourth toe. Diffuse sclerotic appearance to the middle phalanx related to status post bains rgical changes and injection of medication at this site. Slight irregular appearance to the head of the proximal phalanx represents a new finding which is related to post surgical changes(the results o f this examination were discussed with the patient's provider on 12/15/2018 at 10:08 hours). Stable mild degenerative changes first metatarsal-phalangeal joint. Retrocalcaneal spur. JOINTS: See discussion above. SOFT TISSUES: Soft tissue swelling fourth toe. OTHER: No other significant finding. IMPRESSION: 1. Since the previous examination dated 11/01/2018, significant interval change in the ap pearance of the fourth toe and slight irregular appearance to the cortex of the head of the proximal phalanx as discussed above. These findings are likely related to status post surgical changes and in jection of medication. TECHNICAL DOCUMENTATION: JOB ID: [id number] [employer]- All Rights Reserved Reading location - IP/workstation name: [email or web address]
[2018-12-15 10:20] LABS: ABSOLUTE BASOPHILS # (AUTO) 0.1 10^3/uL (0.0-0.2); ABSOLUTE EOSINOPHILS # (AUTO) 0.2 10^3/uL (0.0-0.6); ABSOLUTE LYMPHOCYTES (AUTO) 0.7 10^3/uL (0.5-4.7); ABSOLUTE MONOCYTES (AUTO) 0.5 10^3/uL (0.1-1.4); ABSOLUTE NEUT (AUTO) 3.1 10^3/uL (1.7-8.2); BASOPHILS % (AUTO) 1.3 % (0-2); EOSINOPHILS % (AUTO) 3.5 % (0-6); HEMATOCRIT 28.9 % (37.9-51.0); HEMOGLOBIN 9.3 g/dL (13.5-17.0); MEAN CORPUSCULAR HEMOGLOBIN 27.6 pg (27.0-33.4); MEAN CORPUSCULAR HGB CONC 32.2 g/dL (32.0-36.0); MEAN CORPUSCULAR VOLUME 86 fl (80-97); PLATELET COUNT 294 10^3/uL (150-450); RED BLOOD COUNT 3.36 10^6/uL (4.35-5.55); RED CELL DISTRIBUTION WIDTH 16.6 % (11.5-14.0); SEGMENTED NEUTROPHILS % (AUTO) 68.2 % (42-78); TOTAL CELLS COUNTED % (AUTO) 100 %; WHITE BLOOD COUNT 4.5 10^3/uL (4.0-10.5)
[2018-12-15 10:37] LABS: ALBUMIN 3.3 g/dL (3.5-5.0); ALKALINE PHOSPHATASE 84 U/L (38-126); ANION GAP 6 (5-19); ASPARTATE AMINO TRANSFERASE 24 U/L (17-59); BILIRUBIN,DIRECT 0.2 mg/dL (0.0-0.4); BILIRUBIN,TOTAL 0.5 mg/dL (0.2-1.3); BLOOD UREA NITROGEN 15 mg/dL (7-20); C-REACTIVE PROTEIN 32.4 mg/L (<10.0); CALCIUM 8.9 mg/dL (8.4-10.2); CARBON DIOXIDE 35 mmol/L (22-30); CHLORIDE 98 mmol/L (98-107); GLUCOSE 105 mg/dL (75-110); TOTAL PROTEIN 6.8 g/dL (6.3-8.2)
[2018-12-15 10:57] LABS: ERYTHROCYTE SEDIMENTATION RATE 66 mm/hr (0-20)
== END ==
LOC: RAD 09:05
PROVIDERS: ATTEND Preventive Medicine Undersea and Hyperbaric Medicine
DX: E11.621 Type 2 diabetes mellitus with foot ulcer (principal); L97.514 Non-pressure chronic ulcer of other part of right foot with necrosis of bone
CPT/HCPCS: 36415; 80053; 83036; 85025; 85652; 86140

== ENCOUNTER → 2019-02-09 | Outpatient (CLI) | payer MEDICARE, OTHER ==
--- NOTE | 2019-02-09 14:15 | RADIOLOGY REPORT (SQ) ---
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 The route of agent administration: Intravenous. ADDITIONAL DRUGS AND DOSES: None. TECHNIQUE: Routine delayed images at 3 hour post radionuclide injection acquired of the bony skeleto n including anterior and posterior whole-body projections and additional focused images as needed. LIMITATIONS: None. FINDINGS: BONES: Normal visualization without areas of photopenia or increased bony uptake of radiop harmaceutical. KIDNEYS: Asymmetric retention within the left renal collecting system. OTHER: No other significant finding. IMPRESSION: 1. No focal areas of abnormal uptake to suggest osseous metastatic disease. 2. Asymmetric retention within the left renal collecting system suspicious for urinary obstruction. Nuclear medicine renal scan or ultrasound could be considered for further characterization of degree of obstruction. COMMENT: Quality measure 147: Current bone scan is compared with any available plain radiographs, p rior bone scans, and CT/MRI. TECHNICAL DOCUMENTATION: JOB ID: [id number] [employer]- All Rights Reserved Reading location - IP/workstation name: [email or web address]
== END ==
LOC: RAD 08:35
PROVIDERS: ATTEND Nurse Practitioner Family
DX: C16.9 Malignant neoplasm of stomach, unspecified (principal)
CPT/HCPCS: 78306; A9561; Q9969

== ENCOUNTER → 2019-02-18 | Outpatient (CLI) | payer MEDICARE, OTHER ==
--- NOTE | 2019-02-18 12:01 | RADIOLOGY REPORT (SQ) ---
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 Additional selected color Doppler and spectral images recorded. LIMITATIONS: None. FINDINGS: RIGHT KIDNEY: Normal size, 10 cm in length. Normal cortical thickness with increased echo genicity from medical renal disease. No hydronephrosis. No calcifications. LEFT KIDNEY: Normal size, 9.1 cm in length. Normal cortical thickness with increased echogenicity f rom medical renal disease. No solid or suspicious masses. There is mild left hydronephrosis with prominence of the renal pelvis and calices. Mild prominence o f the upper left ureter. There are several small less than 5 mm intrarenal nonobstructive stones in the left kidney, findings are worrisome for left ureteral stone causing hydronephrosis. BLADDER: No masses. Partially decompressed. No bladder calculi. OTHER FINDINGS: No other significant finding. IMPRESSION: Small left-sided intrarenal nonobstructive stones less than 5 mm in size. There is left-sided mild hydronephrosis and upper hydroureter. This is worrisome for a left ureteral calculus causing urinary outflow obstruction. TECHNICAL DOCUMENTATION: JOB ID: [id number]- All Rights Reserved Reading location - IP/workstation name: [email or web address]
== END ==
LOC: RAD 07:42
PROVIDERS: ATTEND Physician Assistant Medical
DX: C16.9 Malignant neoplasm of stomach, unspecified (principal); N13.2 Hydronephrosis with renal and ureteral calculous obstruction
CPT/HCPCS: 76770

== ENCOUNTER 2019-04-20 17:30 | Inpatient (IN) | payer MEDICARE, OTHER ==
[2019-04-20 18:15] LABS: HEMATOCRIT 28.6 % (37.9-51.0); HEMOGLOBIN 9.6 g/dL (13.5-17.0); MEAN CORPUSCULAR HEMOGLOBIN 32.8 pg (27.0-33.4); MEAN CORPUSCULAR HGB CONC 33.7 g/dL (32.0-36.0); MEAN CORPUSCULAR VOLUME 97 fl (80-97); PLATELET COUNT 163 10^3/uL (150-450); RED BLOOD COUNT 2.94 10^6/uL (4.35-5.55); RED CELL DISTRIBUTION WIDTH 17.7 % (11.5-14.0); WHITE BLOOD COUNT 2.3 10^3/uL (4.0-10.5)
[2019-04-20 18:18] LABS: INTERNATIONAL RATION (INR) 1.63; PROTHROMBIN TIME 19.5 SEC (11.4-15.4)
[2019-04-20 18:21] LABS: VENOUS BLOOD BASE EXCESS -1.6 mmol/L; VENOUS BLOOD HCO3 22.7 mmol/L (20-32); VENOUS BLOOD PCO2 37.1 mmHg (35-63); VENOUS BLOOD PH 7.41 (7.30-7.42)
--- NOTE | 2019-04-20 18:25 | RADIOLOGY REPORT (SQ) ---
EXAM DESCRIPTION: CHEST SINGLE VIEW COMPLETED DATE/TIME: 04/20/2019 6:02 pm REASON FOR STUDY: bed 4 sepsis protocol COMPARISON: PA and lateral views of the chest from 04/29/2014 EXAM PARAMETERS: NUMBER OF VIEWS: One view. TECHNIQUE: An AP view of the chest was obtained. RADIATION DOSE: NA LIMITATIONS: None. FINDINGS: LUNGS AND PLEURA: No consolidation, pleural effusion or pneumothorax. MEDIASTINUM AND HILAR STRUCTURES: No mediastinal or hilar contour abnormality. HEART AND VASCULAR STRUCTURES: The cardiac silhouette and pulmonary vasculature are within normal perrin its. BONES: No acute findings. HARDWARE: The tip of the single-lumen right upper extremity port projects within the SVC. OTHER: No other finding. IMPRESSION: No acute cardiopulmonary process. TECHNICAL DOCUMENTATION: JOB ID: [id number] 2010 [employer]- All Rights Reserved Reading location - IP/workstation name: [email or web address]
[2019-04-20 18:36] LABS: ALBUMIN 3.6 g/dL (3.5-5.0); ALKALINE PHOSPHATASE 104 U/L (38-126); ANION GAP 11 (5-19); ASPARTATE AMINO TRANSFERASE 31 U/L (17-59); BILIRUBIN,DIRECT 0.2 mg/dL (0.0-0.4); BILIRUBIN,TOTAL 2.4 mg/dL (0.2-1.3); BLOOD UREA NITROGEN 15 mg/dL (7-20); CALCIUM 9.4 mg/dL (8.4-10.2); CARBON DIOXIDE 23 mmol/L (22-30); CHLORIDE 105 mmol/L (98-107); GLUCOSE 131 mg/dL (75-110); POTASSIUM 4.1 mmol/L (3.6-5.0); TOTAL PROTEIN 6.9 g/dL (6.3-8.2)
[2019-04-20 18:41] LABS: ABSOLUTE LYMPHOCYTES# (MANUAL) 0.5 10^3/uL (0.5-4.7); ABSOLUTE MONOCYTES # (MANUAL) 0.8 10^3/uL (0.1-1.4); BAND NEUTROPHILS % (MANUAL) 5 % (3-5); BASOPHILS % (MANUAL) 0 % (0-2); EOSINOPHILS % (MANUAL) 2 % (0-6); LYMPHOCYTES % (MANUAL) 21 % (13-45); SEGMENTED NEUTROPHILS % (MAN) 37 % (42-78); TOTAL CELLS COUNTED 100
[2019-04-20 18:42] LABS: A TYPE INFLUENZA AG NEGATIVE (NEGATIVE); B INFLUENZA AG NEGATIVE (NEGATIVE)
[2019-04-20 18:42] LABS: MONOCYTES % (MANUAL) 35 % (3-13)
[2019-04-20 18:43] LABS: TOXIC GRANULATION SLIGHT
[2019-04-20 18:44] LABS: ANISOCYTOSIS 1+; OVALOCYTES SLIGHT; PLATELET COMMENT ADEQUATE; POIKILOCYTOSIS SLIGHT; POLYCHROMASIA SLIGHT; SCHISTOCYTES SLIGHT; TEAR DROP CELLS SLIGHT
--- NOTE | 2019-04-20 18:48 | EKG REPORT ---
SEVERITY:- ABNORMAL ECG - SINUS RHYTHM ABNORMAL T, CONSIDER ISCHEMIA, LATERAL LEADS : Confirmed by: Violet Ornelas 20-Apr-2019 18:47:54
[2019-04-20] MEDS ORDERED: NORMAL SALINE 1000 ML 1,000 ML IV ONE ×2 (20:16→23:31)
--- NOTE | 2019-04-20 20:21 | ER Document Report ---
ED Fever - General Chief Complaint: Fever Stated Complaint: FEVER Time Seen by Provider: 04/20/19 20:03 Notes: Patient is a 78-year-old male that comes to the emergency department for chief complaint of fever, weakness, and falls since yesterday. Patient has a history of gastric cancer, status post both surgery and chemotherapy but is currently on chemotherapy still with Dr. Linder. Patient states he fell against the side of the tub earlier today and he also fell and hit his head last night. He has been having intermittent headaches. He denies vomiting. He does report frequent diarrhea after eating but no diarrhea otherwise. He denies difficulty breathing, cough, or sick symptoms otherwise including chest pain, difficulty breathing, abdominal pain, current headache, sore throat. Only other medical history reportedly is hypertension on amlodipine and he takes megestrol for appetite. is at bedside. Primary care is at [facility]. TRAVEL OUTSIDE OF THE [place] IN LAST 30 DAYS: No - Related Data Allergies/Adverse Reactions: Tuberculin,Ppd,Multi-Puncture [From Tuberculin PPD Yolanda Test] Allergy (Mild, Verified 11/01/18 09:47) Home Medications: Megestrol, Telmisartan, Amlodipine Past Medical History - General Information source: Patient - Social History Smoking Status: Former Smoker Frequency of alcohol use: None Drug Abuse: None Lives with: Family Family History: Reviewed & Not Pertinent Patient has suicidal ideation: No Patient has homicidal ideation: No - Past Medical History Cardiac Medical History: Reports: Hx Hypertension Denies: Hx Hypercholesterolemia Renal/ Medical History: Denies: Hx Peritoneal Dialysis Malignancy Medical History: Reports Hx Prostate Cancer, Reports Other - Gastric cancer GI Medical History: Reports: Hx Colonoscopy, Hx Endoscopy. Denies: Hx Hepatitis Infectious Medical History: Denies: Hx Hepatitis Past Surgical History: Reports: Hx Abdominal Surgery - Gastrectomy - Immunizations Hx Diphtheria, Pertussis, Tetanus Vaccination: Yes Hx Pneumococcal Vaccination: 05/02/11 Review of Systems - Review of Systems Constitutional: See HPI EENT: No symptoms reported Cardiovascular: No symptoms reported Respiratory: No symptoms reported Gastrointestinal: No symptoms reported Genitourinary: No symptoms reported Male Genitourinary: No symptoms reported Musculoskeletal: See HPI Skin: No symptoms reported Hematologic/Lymphatic: No symptoms reported Neurological/Psychological: See HPI Physical Exam - Vital signs Vitals: Resp 21 H 04/20/19 17:38 - Notes Notes: GENERAL: Sleeping but easily aroused. Somewhat ill-appearing, very emaciated HEAD: Normocephalic, atraumatic. EYES: Pupils equal, round, and reactive to light. Extraocular movements intact. ENT: Oral mucosa moist, tongue midline. Oropharynx unremarkable. Airway patent. N NECK: Full range of motion. Supple. Trachea midline. No nuchal rigidity LUNGS: Decreased throughout but no wheezes, rales, rhonchi, labored breathing, or respiratory distress HEART: Regular rate and rhythm. No murmur ABDOMEN: Soft, non-tender. Non-distended. Bowel sounds present in all 4 quadrants. GENITOURINARY: No overt tenderness, swelling, or abnormality noted EXTREMITIES: Moves all 4 extremities spontaneously. No edema, normal radial and dorsalis pedis pulses bilaterally. No cyanosis. BACK: no cervical, thoracic, lumbar midline tenderness. No saddle anesthesia, normal distal neurovascular exam. Moves all extremities in full range of motion. NEUROLOGICAL: Alert and oriented x3. Normal speech. Cranial nerves II through XII grossly intact. PSYCH: Normal affect, normal mood. SKIN: Warm, dry, normal turgor. No rashes or lesions noted. Course - Re-evaluation Re-evalutation: Patient is somewhat emaciated in appearance and chronically ill-appearing, he also appears to be acutely ill in addition to this. However he is oriented, alert, cooperative. He has decreased lung sounds but clear lungs, soft unremarkable abdomen, and no current reported symptoms other than generalized weakness. He had borderline hypotension at 98 systolic once but unremarkable b lood pressures otherwise, he is not tachycardic. He was febrile at one 101.5. Septic work-up had been initiated. Lactic acid is 2.9, borderline. CBC shows a leukopenia with white blood cells of 2.3, neutrophils of only 37%, absolute neutrophils are only 1. Patient's estimated ANC is 851, moderate neutropenia. Work-up has been delayed significantly, initiated cefepime for broad-spectrum coverage. Chest x-ray is negative. Chemistry nonspecific. CT of the head and neck without acute findings from the fall. Patient still has not urinated despite being given IV fluids (2 L bolus). Nursing initially attempted to cath, they stated this did not yield any results. Nursing attempted again and could not advance the catheter into the bladder, I did come to bedside and performed catheterization using a 14 Ukrainian coud without any difficulty, there was no significant pain or bleeding noted. This did yield normal-appearing urine without overt infection. I have discussed with at bedside. Patient also be given vancomycin. I will discuss with oncology on-call and hospitalist because of patient with neutropenic fever, patient being too weak to stand without fall risk, advanced age, chemotherapy. They both state appreciation and agreement. Discussed with Dr. Green, he agrees with cefepime, vancomycin, and recommends admission to the hospitalist for neutropenic fever pending blood cultures. Discussed with Dr. Frias, hospitalist, he accepts patient for full admission to the [facility]. - Vital Signs Vital signs: Temp Pulse Resp BP Pulse Ox 98.1 F 21 H 146/81 H 96 04/21/19 05:23 04/21/19 04:01 04/21/19 04:00 04/21/19 02:01 - Laboratory Result Diagrams: 04/20/19 17:38 04/20/19 17:38 Laboratory results interpreted by me: 04/20/19 04/20/19 04/20/19 17:38 17:38 17:38 WBC 2.3 L RBC 2.94 L Hgb 9.6 L Hct 28.6 L RDW 17.7 H Seg Neuts % (Manual) 37 L Monocytes % (Manual) 35 H Abs Neuts (Manual) 1.0 L PT 19.5 H Glucose 131 H POC Glucose Lactic Acid Total Bilirubin 2.4 H Urine Protein Urine Blood Urine Ascorbic Acid 04/20/19 04/20/19 04/21/19 17:38 18:45 01:08 WBC RBC Hgb Hct RDW Seg Neuts % (Manual) Monocytes % (Manual) Abs Neuts (Manual) PT Glucose POC Glucose 145 H Lactic Acid 2.9 H Total Bilirubin Urine Protein 100 H Urine Blood SMALL H Urine Ascorbic Acid 40 H 04/21/19 01:35 WBC RBC Hgb Hct RDW Seg Neuts % (Manual) Monocytes % (Manual) Abs Neuts (Manual) PT Glucose POC Glucose Lactic Acid 3.2 H Total Bilirubin Urine Protein Urine Blood Urine Ascorbic Acid Discharge - Discharge Clinical Impression: Fever and neutropenia, Weakness Fall Qualifiers: Encounter type: initial encounter Qualified Code(s): W19.XXXA - Unspecified fall, initial encounter Head injury Qualifiers: Encounter type: initial encounter Qualified Code(s): S09.90XA - Unspecified injury of head, initial encounter Condition: Stable Disposition: ADMITTED INPATIENT Admitting Provider: Altagracia (Hospitalist) Unit Admitted: [facility]
[2019-04-20] MEDS ORDERED: CEFEPIME 2 GM/D5W RTU 2 GM/50 ML RTUPB IV ONE (20:22)
--- NOTE | 2019-04-20 21:14 | RADIOLOGY REPORT (SQ) ---
EXAM DESCRIPTION: CT CERVICAL SPINE WITHOUT IV CONTRAST COMPLETED DATE/TME: 04/20/2019 20:21 CLINICAL HISTORY: 78 years Male fall, head injury, headache COMPARISON: None. TECHNIQUE: Contiguous axial images obtained through the cervical spine without IV contrast. Coronal and sagittal reformatted images obtained. This exam was performed according to our department optimization program which includes automated exposure control, adjustment of the mA and/or kv according to patient size and/or use of iterative reconstruction technique. FINDINGS: Vertebral body alignment is unremarkable. No acute fractures. Narrowing of disc interspaces particularly at C5-6 with marginal osteophytosis and subchondral sclerosis. Facet arthropathy is present multiple levels. Degenerative changes at C5-6 with left neural foraminal stenosis. Mild bilateral neural foraminal stenosis at C6-7. No significant central canal stenosis. IMPRESSION: No acute cervical spinal fracture is identified.
--- NOTE | 2019-04-20 21:16 | RADIOLOGY REPORT (SQ) ---
EXAM DESCRIPTION: CT HEAD WITHOUT IV CONTRAST COMPLETED DATE/TME: 04/20/2019 20:21 CLINICAL HISTORY: 78 years Male fall, head injury, headache COMPARISON: None. TECHNIQUE: Contiguous axial CT images obtained through the brain without IV contrast. This exam was performed according to our department optimization program which includes automated exposure control, adjustment of the mA and/or kv according to patient size and/or use of iterative reconstruction technique. FINDINGS: The ventricles and sulci are prominent consistent with atrophic changes. Microvascular ischemic changes. No midline shift or mass effect. No mass lesions. No acute hemorrhage. Atherosclerotic calcifications. Wall thickening in the maxillary sinuses with opacification of the left. Findings suggest chronic sinusitis. Small amount mucosal thickening in the frontal sinuses. No depressed calvarial fractures. IMPRESSION: No acute intracranial abnormality is identified. Findings suggesting chronic sinusitis Generalized atrophy with microvascular ischemic changes.
[2019-04-21 01:39] LABS: APPEARANCE,URINE SLIGHTLY-CLOUDY; BILIRUBIN,URINE NEGATIVE (NEGATIVE); COLOR,URINE AMBER; GLUCOSE, URINE NEGATIVE (NEGATIVE); KETONES,URINE NEGATIVE (NEGATIVE); PROTEIN,URINE 100 mg/dL (NEGATIVE); URINE SPECIFIC GRAVITY 1.025; UROBILINOGEN,URINE NEGATIVE mg/dL (<2.0)
[2019-04-21] MEDS ORDERED: VANCOMYCIN HCL INJ 1000 MG VIAL IV ONE (01:42)
[2019-04-21] MEDS ORDERED: MAG HYDROX/AL HYDROX/SIMETH SUSP 30 ML UDCUP PO PRN (02:36)
[2019-04-21] MEDS ORDERED: MAGNESIUM HYDROXIDE SUSP 30 ML UDCUP PO PRN (02:36)
[2019-04-21] MEDS ORDERED: TEMAZEPAM 15 MG CAPSULE PO PRN (02:36)
[2019-04-21] MEDS ORDERED: PROMETHAZINE HCL INJ 25 MG/1 ML VIAL IV PRN (02:36)
[2019-04-21] MEDS ORDERED: GLUCAGON,HUMAN RECOMB 1 MG INJ IM PRN (02:42)
[2019-04-21] MEDS ORDERED: DEXTROSE 40% GEL 15 GM TUBE PO PRN ×2 (02:42)
[2019-04-21] MEDS ORDERED: DEXTROSE 50%-WATER 25 GM/50 ML DISP.SYRIN IV PRN ×2 (02:42)
[2019-04-21] MEDS ORDERED: ACETAMINOPHEN 325 MG TABLET PO PRN (02:43)
[2019-04-21] MEDS ORDERED: MORPHINE SULFATE 10 MG/ML INJ IV PRN ×3 (02:43)
--- NOTE | 2019-04-21 05:34 | PDOC H&P ---
History of Present Illness Admission Date/PCP: 04/21/2019 02:06 Dr. Linder Patient complains of: Weakness History of Present Illness: NOY RIDER is a 78 year old male who presented to the emergency room with a 2-day history of weakness. Patient admits to generalized weakness accompanied by a subjective fever for the last 2 days. His weakness has been constant and moderate, resulting in a mild fall (without injury) in the bathtub on the day prior to admission. His weakness is also been associated with intermittent headaches and postprandial diarrhea. He denies other associated or accompanying signs and symptoms. He admits prior similar episodes with chemotherapy in the past. He has been receiving chemotherapy for his carcinoma with his last dose being less than 1 week ago. He was forced to skip chemotherapy on Friday because his bilirubin was elevated and his oncologist chose to give him IV fluids instead with a plan to follow-up on . He has not identified any additional aggravating or ameliorating factors for his weakness. In the emergency room he was found to be neutropenic with an absolute neutrophil count less than 1000 and was noted to have a low-grade fever. He was started on empiric antibiotic therapy at the direction of Dr. Green. Patient was subsequently admitted to the hospital for further evaluation and treatment. Past Medical History Cardiac Medical History: Reports: Hypertension Denies: Atrial Fibrillation, Congestive Heart Failure, Coronary Artery Disease, Myocardial Infarction, Hyperlipidema Pulmonary Medical History: Denies: Asthma, Chronic Obstructive Pulmonary Disease (COPD) EENT Medical History: Denies: Cataracts, Ears - Hearing aids Neurological Medical History: Denies: Hemorrhagic CVA, Ischemic CVA, Seizures Endocrine Medical History: Reports: Diabetes Mellitus Type 2 Denies: Diabetes Mellitus Type 1, Hyperthyroidism, Hypothyroidism Renal/ Medical History: Reports: Nephrolithiasis, Other - Benign prostatic hyperplasia Denies: Chronic Kidney Disease Malignancy Medical History: 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 GI Medical History: Reports: Peptic Ulcer Disease, Other - Frequent diarrhea Denies: Cirrhosis, Crohn's Disease, Gastroesophageal Reflux Disease, Hepatitis, Ulcerative Colitis Musculoskeltal Medical History: Denies: Arthritis, Gout Skin Medical History: Denies: Eczema, Psoriasis Psychiatric Medical History: Denies: Alcohol Dependency, Substance Abuse, Tobacco Dependency Traumatic Medical History: Reports: None Hematology: Denies: Anemia, Bleeding Tendencies Infectious Medical History: Reports: None Past Surgical History Past Surgical History: Reports: Other - Gastric resection, EGD, colonoscopy Social History Information Source: Patient Lives with: Spouse/Significant other Smoking Status: Former Smoker Electronic Cigarette use?: No Frequency of Alcohol Use: None Hx Recreational Drug Use: No Drugs: None Hx Prescription Drug Abuse: No - Advance Directive Resuscitation Status: Full Code Surrogate healthcare decision maker:: Marya Rider Family History Family History: Other - Tuberculosis. denies: CAD, DM, Hypertension, Malignancy Parental Family History Reviewed: Yes Children Family History Reviewed: No Sibling(s) Family History Reviewed.: Yes Medication/Allergy Home Medications: Metoprolol Succinate [Toprol Xl] 100 mg PO DAILY 07/22/12 Ferrous Sulfate [Iron Supplement] 325 mg PO DAILY 03/09/14 Lisinopril [Prinivil 40 mg Tablet] 40 mg PO DAILY 03/09/14 Multivitamin [Multi-Vitamin Daily] 1 each PO DAILY 03/09/14 Ubidecarenone [Coq-10] 30 mg PO DAILY 03/09/14 Vitamin A/Vitamin D3 [Vitamin A & D Softgel] 1 each PO DAILY 03/09/14 Prednisone [Deltasone 20 mg Tablet] 2 tab PO DAILY 5 Days tablet 10/25/18 Cephalexin Monohydrate [Keflex 500 mg Capsule] 500 mg PO BID 7 Days #14 capsule 11/01/18 Potassium Chloride 10 meq PO BID #8 capsule.er 11/30/18 Allergies/Adverse Reactions: Tuberculin,Ppd,Multi-Puncture [From Tuberculin PPD Yolanda Test] Allergy (Mild, Verified 11/01/18 09:47) Review of Systems Constitutional: PRESENT: as per HPI, fever(s), headache(s). ABSENT: anorexia, chills Eyes: ABSENT: visual disturbances, other - Eye pain Ears: ABSENT: hearing changes, other - Ear pain Nose, Mouth, and Throat: PRESENT: headache(s). ABSENT: mouth pain, sore throat Cardiovascular: ABSENT: chest pain, palpitations Respiratory: ABSENT: cough, dyspnea Gastrointestinal: PRESENT: as per HPI, diarrhea. ABSENT: abdominal pain, constipation, nausea, vomiting Genitourinary: ABSENT: dysuria, hematuria Musculoskeletal: ABSENT: back pain, joint swelling Integumentary: ABSENT: pruritus, rash Neurological: ABSENT: confusion, convulsions, focal weakness, memory loss, syncope Psychiatric: ABSENT: anxiety, depression Endocrine: ABSENT: cold intolerance, heat intolerance, polydipsia, polyphagia, polyuria Hematologic/Lymphatic: ABSENT: easy bleeding, easy bruising Allergic/Immunologic: ABSENT: seasonal rhinorrhea Physical Exam Vital Signs: Temp Pulse Resp BP Pulse Ox 98.3 F 16 129/68 H 99 04/20/19 23:50 04/20/19 23:22 04/20/19 23:22 04/20/19 23:22 Intake & Output 04/19/19 04/20/19 04/21/19 23:59 23:59 23:59 Intake Total 1050 1000 Balance 1050 1000 Weight 63 kg General appearance: PRESENT: no acute distress, cooperative, thin Head exam: PRESENT: atraumatic, normocephalic Eye exam: PRESENT: conjunctiva pink. ABSENT: conjunctival injection, scleral icterus Ear exam: PRESENT: normal external ear exam. ABSENT: bleeding, drainage Mouth exam: PRESENT: dry mucosa, neck supple Neck exam: ABSENT: thyromegaly, tracheal deviation Respiratory exam: PRESENT: clear to auscultation patel, symmetrical, unlabored Cardiovascular exam: PRESENT: RRR. ABSENT: clicks, gallop, rubs Pulses: PRESENT: normal radial pulses, normal dorsalis pedis pul Vascular exam: PRESENT: normal capillary refill. ABSENT: pallor GI/Abdominal exam: PRESENT: normal bowel sounds, soft Rectal exam: PRESENT: deferred Extremities exam: ABSENT: joint swelling, pedal edema Musculoskeletal exam: ABSENT: deformity, dislocation Neurological exam: PRESENT: alert, oriented to person, oriented to place, oriented to time, oriented to situation, CN II-XII grossly intact. ABSENT: motor sensory deficit Psychiatric exam: PRESENT: appropriate affect, normal mood Skin exam: PRESENT: dry, intact, warm. ABSENT: jaundice, rash, urticaria Results Laboratory Results: 04/20/19 17:38 04/20/19 17:38 04/20/19 04/20/19 04/20/19 17:38 17:38 17:38 WBC 2.3 L RBC 2.94 L Hgb 9.6 L Hct 28.6 L MCV 97 MCH 32.8 MCHC 33.7 RDW 17.7 H Plt Count 163 Seg Neutrophils % Not Reportable VBG pH 7.41 VBG pCO2 37.1 VBG HCO3 22.7 VBG Base Excess -1.6 Sodium 138.9 Potassium 4.1 Chloride 105 Carbon Dioxide 23 Anion Gap 11 BUN 15 Creatinine 0.85 Est GFR ( Amer) > 60 Glucose 131 H Lactic Acid Calcium 9.4 Total Bilirubin 2.4 H AST 31 Alkaline Phosphatase 104 Total Protein 6.9 Albumin 3.6 Urine Color Urine Appearance Urine pH Ur Specific [place] Urine Protein Urine Glucose (UA) Urine Ketones Urine Blood Urine RBC (Auto) 04/20/19 04/20/19 04/21/19 17:38 21:20 01:08 WBC RBC Hgb Hct MCV MCH MCHC RDW Plt Count Seg Neutrophils % VBG pH VBG pCO2 VBG HCO3 VBG Base Excess Sodium Potassium Chloride Carbon Dioxide Anion Gap BUN Creatinine Est GFR ( Amer) Glucose Lactic Acid 2.9 H 2.1 Calcium Total Bilirubin AST Alkaline Phosphatase Total Protein Albumin Urine Color PADDY Urine Appearance SLIGHTLY-CLOUDY Urine pH 5.0 Ur Specific [place] 1.025 Urine Protein 100 H Urine Glucose (UA) NEGATIVE Urine Ketones NEGATIVE Urine Blood SMALL H Urine RBC (Auto) 4 Impressions: Chest X-Ray 04/20/19 17:33 IMPRESSION: No acute cardiopulmonary process. Cervical Spine CT 04/20/19 20:21 IMPRESSION: No acute cervical spinal fracture is identified. Head CT 04/20/19 20:21 IMPRESSION: No acute intracranial abnormality is identified. Findings suggesting chronic sinusitis Generalized atrophy with microvascular ischemic changes. Assessment and Plan - Diagnosis (1) Fever and neutropenia Is this a current diagnosis for this admission?: Yes (2) Weakness Is this a current diagnosis for this admission?: Yes (3) Gastric carcinoma Is this a current diagnosis for this admission?: Yes (4) Hypertension Qualifiers: Hypertension type: essential hypertension Qualified Code(s): I10 - Essential (primary) hypertension Is this a current diagnosis for this admission?: Yes (5) Diabetes mellitus type 2 in nonobese Is this a current diagnosis for this admission?: Yes - Plan Summary Summary: Patient will be admitted to the [facility] where he will be treated with the usual supportive and symptomatic cares. He will be treated with IV antibiotics utilizing vancomycin and cefepime per Dr. Green's instructions. He will receive morphine sulfate 2 to 4 mg IV every 2 hours as needed for pain control. Serial lactic acids, CBCs, metabolic profiles and magnesium levels will be obtained as appropriate. Patient will receive protective isolation. He will be initially treated with IV fluids which will be continued if appropriate. - Time Time Spent with patient: 15-24 minutes Medications reviewed and adjusted accordingly: Yes Anticipated discharge: Home - Inpatient Certification Based on my medical assessment, after consideration of the patient's comorbidities, presenting symptoms, or acuity I expect that the services needed warrant INPATIENT care.: Yes I certify that my determination is in accordance with my understanding of Medicare's requirements for reasonable and necessary INPATIENT services [42 CFR 412.3e].: Yes Medical Necessity: Need Close Monitoring Due to Risk of Patient Decompensation, Need for IV Antibiotics, Risk of Complication if Not Cared For in Hospital, Risk of Diagnosis Which Will Require Inpatient Eval/Care/Monitoring
[2019-04-21] MEDS: HEPARIN SOD (PORCINE) 5,000 UNIT/ML 1 ML VIAL SUBCUT SCH ×3 (06:10→21:55)
[2019-04-21] MEDS: RINGERS SOLUTION,LACTATED 1,000 ML IV PRN ×2 (06:11→11:19)
--- NOTE | 2019-04-21 08:02 | PDOC CONSULTATION ---
Consultation Consult Date: 04/21/19 Attending physician:: LLOYD ZUÑIGA Provider Consulted: CAROL CASON Consult reason:: Patient with stage IV cancer currently on therapy here with severe weakness, fever, neutropenia History of Present Illness Admission Date/PCP: 04/21/19 04:11 Patient complains of: Weakness, fever, neutropenia History of Present Illness: NOY RIDER is a 78 year old male with known history of stage IV cancer, currently on chemotherapy and last chemotherapy was given about 10 days ago, was due for chemotherapy this week but was held because of hyperbilirubinemia, and weakness, ultimately we gave him 1 L of normal saline, he got better and we were supposed to give him more fluids later this week but he came back into the hospital, ER, with fever, chills, weakness. Ultimately was found to be pancytopenic, with neutropenia, still with hyperbilirubinemia although a little bit improved. He is on broad-spectrum antibiotics along with aggressive hydration now. His p.o. intake is been poor for the last 4 to 5 days. Past Medical History Cardiac Medical History: Reports: Hypertension Denies: Atrial Fibrillation, Congestive Heart Failure, Coronary Artery Disease, Myocardial Infarction, Hyperlipidema Pulmonary Medical History: Denies: Asthma, Chronic Obstructive Pulmonary Disease (COPD) EENT Medical History: Denies: Cataracts, Ears - Hearing aids Neurological Medical History: Denies: Hemorrhagic CVA, Ischemic CVA, Seizures Endocrine Medical History: Reports: Diabetes Mellitus Type 2 Denies: Diabetes Mellitus Type 1, Hyperthyroidism, Hypothyroidism Renal/ Medical History: Reports: Nephrolithiasis, Other - Benign prostatic hyperplasia Denies: Chronic Kidney Disease Malignancy Medical History: 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 GI Medical History: Reports: Peptic Ulcer Disease, Other - Frequent diarrhea Denies: Cirrhosis, Crohn's Disease, Gastroesophageal Reflux Disease, Hepatitis, Ulcerative Colitis Musculoskeltal Medical History: Denies: Arthritis, Gout Skin Medical History: Denies: Eczema, Psoriasis Psychiatric Medical History: Denies: Alcohol Dependency, Substance Abuse, Tobacco Dependency Traumatic Medical History: Reports: None Hematology: Denies: Anemia, Sickle Cell Disease, Bleeding Tendencies Infectious Medical History: Reports: None Past Surgical History Past Surgical History: Reports: Other - Gastric resection, EGD, colonoscopy Social History Information Source: Patient Lives with: Spouse/Significant other Smoking Status: Former Smoker Electronic Cigarette use?: No Frequency of Alcohol Use: None Hx Recreational Drug Use: No Drugs: None Hx Prescription Drug Abuse: No - Advance Directive Resuscitation Status: Full Code Family History Family History: Other - Tuberculosis. denies: CAD, DM, Hypertension, Malignancy Parental Family History Reviewed: Yes Children Family History Reviewed: Yes Sibling(s) Family History Reviewed.: Yes Medication/Allergy Allergies/Adverse Reactions: Tuberculin,Ppd,Multi-Puncture [From Tuberculin PPD Yolanda Test] Allergy (Mild, Verified 11/01/18 09:47) Review of Systems Constitutional: ABSENT: chills, fever(s), headache(s), weight gain, weight loss Eyes: ABSENT: visual disturbances Ears: ABSENT: hearing changes Cardiovascular: ABSENT: chest pain, dyspnea on exertion, edema, orthropnea, palpitations Respiratory: ABSENT: cough, hemoptysis Gastrointestinal: ABSENT: abdominal pain, constipation, diarrhea, hematemesis, hematochezia, nausea, vomiting Genitourinary: ABSENT: dysuria, hematuria Musculoskeletal: ABSENT: joint swelling Integumentary: ABSENT: rash, wounds Neurological: ABSENT: abnormal gait, abnormal speech, confusion, dizziness, focal weakness, syncope Psychiatric: ABSENT: anxiety, depression, homidical ideation, suicidal ideation Endocrine: ABSENT: cold intolerance, heat intolerance, polydipsia, polyuria Hematologic/Lymphatic: ABSENT: easy bleeding, easy bruising Physical Exam Vital Signs: Temp Pulse Resp BP Pulse Ox 98.1 F 86 20 121/78 99 04/21/19 07:20 04/21/19 07:20 04/21/19 07:20 04/21/19 07:20 04/21/19 07:20 Intake & Output 04/20/19 04/21/19 04/22/19 06:59 06:59 06:59 Intake Total 2049 Balance 2049 Weight 76 kg General appearance: PRESENT: no acute distress, well-developed, well-nourished Head exam: PRESENT: atraumatic, normocephalic Eye exam: PRESENT: conjunctiva pink, EOMI, PERRLA. ABSENT: scleral icterus Ear exam: PRESENT: normal external ear exam Mouth exam: PRESENT: moist, tongue midline Neck exam: ABSENT: carotid bruit, JVD, lymphadenopathy, thyromegaly Respiratory exam: PRESENT: clear to auscultation patel. ABSENT: rales, rhonchi, wheezes Cardiovascular exam: PRESENT: RRR. ABSENT: diastolic murmur, rubs, systolic murmur Pulses: PRESENT: normal dorsalis pedis pul Vascular exam: PRESENT: normal capillary refill GI/Abdominal exam: PRESENT: normal bowel sounds, soft. ABSENT: distended, guarding, mass, organolmegaly, rebound, tenderness Rectal exam: PRESENT: deferred Extremities exam: PRESENT: full ROM. ABSENT: calf tenderness, clubbing, pedal edema Neurological exam: PRESENT: alert, awake, oriented to person, oriented to place, oriented to time, oriented to situation, CN II-XII grossly intact. ABSENT: motor sensory deficit Psychiatric exam: PRESENT: appropriate affect, normal mood. ABSENT: homicidal ideation, suicidal ideation Skin exam: PRESENT: dry, intact, warm. ABSENT: cyanosis, rash Results Laboratory Results: 04/20/19 17:38 04/20/19 17:38 04/20/19 04/20/19 04/20/19 17:38 17:38 17:38 WBC 2.3 L RBC 2.94 L Hgb 9.6 L Hct 28.6 L MCV 97 MCH 32.8 MCHC 33.7 RDW 17.7 H Plt Count 163 Seg Neutrophils % Not Reportable VBG pH 7.41 VBG pCO2 37.1 VBG HCO3 22.7 VBG Base Excess -1.6 Sodium 138.9 Potassium 4.1 Chloride 105 Carbon Dioxide 23 Anion Gap 11 BUN 15 Creatinine 0.85 Est GFR ( Amer) > 60 Glucose 131 H Lactic Acid Calcium 9.4 Total Bilirubin 2.4 H AST 31 Alkaline Phosphatase 104 Total Protein 6.9 Albumin 3.6 Urine Color Urine Appearance Urine pH Ur Specific [place] Urine Protein Urine Glucose (UA) Urine Ketones Urine Blood Urine RBC (Auto) 04/20/19 04/20/19 04/21/19 17:38 21:20 01:08 WBC RBC Hgb Hct MCV MCH MCHC RDW Plt Count Seg Neutrophils % VBG pH VBG pCO2 VBG HCO3 VBG Base Excess Sodium Potassium Chloride Carbon Dioxide Anion Gap BUN Creatinine Est GFR ( Amer) Glucose Lactic Acid 2.9 H 2.1 Calcium Total Bilirubin AST Alkaline Phosphatase Total Protein Albumin Urine Color PADDY Urine Appearance SLIGHTLY-CLOUDY Urine pH 5.0 Ur Specific [place] 1.025 Urine Protein 100 H Urine Glucose (UA) NEGATIVE Urine Ketones NEGATIVE Urine Blood SMALL H Urine RBC (Auto) 4 02/19/20 02/19/20 01:35 06:23 WBC RBC Hgb Hct MCV MCH MCHC RDW Plt Count Seg Neutrophils % VBG pH VBG pCO2 VBG HCO3 VBG Base Excess Sodium Potassium Chloride Carbon Dioxide Anion Gap BUN Creatinine Est GFR ( Amer) Glucose Lactic Acid 3.2 H 2.9 H Calcium Total Bilirubin AST Alkaline Phosphatase Total Protein Albumin Urine Color Urine Appearance Urine pH Ur Specific [place] Urine Protein Urine Glucose (UA) Urine Ketones Urine Blood Urine RBC (Auto) Impressions: Chest X-Ray 04/20/19 17:33 IMPRESSION: No acute cardiopulmonary process. Cervical Spine CT 04/20/19 20:21 IMPRESSION: No acute cervical spinal fracture is identified. Head CT 04/20/19 20: IMPRESSION: No acute intracranial abnormality is identified. Findings suggesting chronic sinusitis Generalized atrophy with microvascular ischemic changes. Assessment & Plan - Diagnosis (1) Fever and neutropenia Is this a current diagnosis for this admission?: Yes Plan: Febrile neutropenia, continue broad-spectrum antibiotics, cultures pending, once cultures negative for 48 hours, can discontinue vancomycin. (2) Gastric carcinoma Is this a current diagnosis for this admission?: Yes Plan: Chemotherapy on hold until patient recovers from this episode (3) Weakness Is this a current diagnosis for this admission?: Yes Plan: Related in part to the infection as well as the cancer, continue with hydration (4) Dehydration Is this a current diagnosis for this admission?: Yes Plan: Continue with aggressive hydration - Time Time Spent: Greater than 70 Minutes - Inpatient Certification Based on my medical assessment, after consideration of the patient's comorbidities, presenting symptoms, or acuity I expect that the services needed warrant INPATIENT care.: Yes I certify that my determination is in accordance with my understanding of Medicare's requirements for reasonable and necessary INPATIENT services [42 CFR 412.3e].: Yes Medical Necessity: Risk of Complication if Not Cared For in Hospital
[2019-04-21] MEDS: INSULIN REG, HUMAN 100 UNIT/ML 3 ML VIAL (PYX) SUBCUT SCH ×4 (08:07→21:43)
[2019-04-21] MEDS: CEFEPIME HCL 2 GM in DEXTROSE 5%-WATER 50 ML IV SCH ×2 (09:23→21:56)
[2019-04-21] MEDS: FAMOTIDINE 20 MG TABLET PO SCH ×2 (09:24→22:00)
[2019-04-21] MEDS ORDERED: VANCOMYCIN HCL INJ 1000 MG VIAL IV SCH (10:00)
[2019-04-21] MEDS ORDERED: CEFEPIME 2 GM/D5W RTU 2 GM/50 ML RTUPB IV SCH (10:00)
[2019-04-21 12:59] LABS: PATH REVIEW PATHOLOGIST REVIEWED
--- NOTE | 2019-04-21 15:25 | Progress Note ---
Provider Note Provider Note: Patient admitted early on today. He was seen and evaluated. He has been treated for neutropenic fever. We will continue with empiric vancomycin and cefepime and de-escalate antibiotics as appropriate.
[2019-04-21] MEDS: VANCOMYCIN HCL 1,250 MG in DEXTROSE 5%-WATER 250 ML IV SCH (17:21)
[2019-04-22] MEDS ORDERED: DILTIAZEM HCL INJ 25 MG/5 ML VIAL ONE ×2 (05:31→06:33)
[2019-04-22] MEDS ORDERED: DILTIAZEM HCL/D5W 125 MG/125 ML RTUINJ IV ONE (06:32)
[2019-04-22] MEDS: HEPARIN SOD (PORCINE) 5,000 UNIT/ML 1 ML VIAL SUBCUT SCH ×3 (06:44→21:24)
[2019-04-22] MEDS: VANCOMYCIN HCL 1,250 MG in DEXTROSE 5%-WATER 250 ML IV SCH ×2 (06:45→17:22)
[2019-04-22] MEDS ORDERED: DILTIAZEM HCL INJ 25 MG/5 ML VIAL IV ONE ×2 (06:45)
[2019-04-22 06:56] LABS: ANION GAP 9 (5-19); BLOOD UREA NITROGEN 16 mg/dL (7-20); CALCIUM 9.1 mg/dL (8.4-10.2); CARBON DIOXIDE 25 mmol/L (22-30); CHLORIDE 105 mmol/L (98-107); GLUCOSE 93 mg/dL (75-110); HEMATOCRIT 28.9 % (37.9-51.0); MEAN CORPUSCULAR HGB CONC 34.6 g/dL (32.0-36.0); MEAN CORPUSCULAR VOLUME 96 fl (80-97); PLATELET COUNT 141 10^3/uL (150-450); POTASSIUM 4.3 mmol/L (3.6-5.0); RED BLOOD COUNT 3.02 10^6/uL (4.35-5.55); RED CELL DISTRIBUTION WIDTH 17.6 % (11.5-14.0); WHITE BLOOD COUNT 2.7 10^3/uL (4.0-10.5)
[2019-04-22] MEDS: DILTIAZEM HCL/D5W 125 MG/125 ML RTUINJ IV PRN ×2 (07:04→14:44)
[2019-04-22] MEDS: INSULIN REG, HUMAN 100 UNIT/ML 3 ML VIAL (PYX) SUBCUT SCH ×4 (07:35→21:17)
[2019-04-22 08:11] LABS: ABSOLUTE LYMPHOCYTES# (MANUAL) 0.4 10^3/uL (0.5-4.7); ABSOLUTE MONOCYTES # (MANUAL) 0.3 10^3/uL (0.1-1.4); BASOPHILS % (MANUAL) 1 % (0-2); EOSINOPHILS % (MANUAL) 0 % (0-6); LYMPHOCYTES % (MANUAL) 15 % (13-45); MONOCYTES % (MANUAL) 11 % (3-13); SEGMENTED NEUTROPHILS % (MAN) 53 % (42-78); TOTAL CELLS COUNTED 100
[2019-04-22 08:15] LABS: ANISOCYTOSIS 1+; BAND NEUTROPHILS % (MANUAL) 19 % (3-5); PLATELET COMMENT DECREASED; POIKILOCYTOSIS SLIGHT; POLYCHROMASIA SLIGHT; TARGET CELLS SLIGHT; TOXIC GRANULATION 2+; TOXIC VACUOLATION PRESENT
--- NOTE | 2019-04-22 09:10 | EKG REPORT ---
SEVERITY:- ABNORMAL ECG - ATRIAL FIBRILLATION, V-RATE 107-169 NONSPECIFIC T ABNORMALITIES, LATERAL LEADS : Confirmed by: Violet Ornelas 22-Apr-2019 09:09:35
[2019-04-22] MEDS: CEFEPIME HCL 2 GM in DEXTROSE 5%-WATER 50 ML IV SCH ×2 (09:29→21:25)
[2019-04-22] MEDS: FAMOTIDINE 20 MG TABLET PO SCH ×2 (09:31→21:25)
[2019-04-22 11:37] LABS: PATH REVIEW PATHOLOGIST REVIEWED
--- NOTE | 2019-04-22 12:59 | PDOC PROGRESS REPORT ---
Subjective Progress Note for:: 04/22/19 Subjective:: Patient without complaints today. He continues on antibiotics. ROS: No chest pain, nausea. Reason For Visit: NEUTROPENIC FEVER,GENERALIZED WEAKNESS Physical Exam Vital Signs: Temp Pulse Resp BP Pulse Ox 97.8 F 86 16 139/95 H 92 04/22/19 07:18 04/22/19 12:18 04/22/19 07:18 04/22/19 12:18 04/22/19 07:18 Intake & Output 04/21/19 04/22/19 04/23/19 06:59 06:59 06:59 Intake Total 2049 2927 375 Output Total 50 Balance 2049 2877 375 Weight 76 kg 61.5 kg General appearance: PRESENT: no acute distress, thin Exam: 78 year old male. Eye exam: PRESENT: EOMI Respiratory exam: PRESENT: clear to auscultation patel, unlabored Cardiovascular exam: PRESENT: RRR GI/Abdominal exam: PRESENT: soft. ABSENT: tenderness Neurological exam: PRESENT: alert, awake Psychiatric exam: PRESENT: flat affect Skin exam: PRESENT: normal color Results Laboratory Results: 04/22/19 05:47 04/22/19 05:47 04/21/19 04/22/19 04/22/19 13:40 05:47 05:47 WBC 2.7 L RBC 3.02 L Hgb 10.0 L Hct 28.9 L MCV 96 MCH 33.0 MCHC 34.6 RDW 17.6 H Plt Count 141 L Seg Neutrophils % Not Reportable Sodium 138.8 Potassium 4.3 Chloride 105 Carbon Dioxide 25 Anion Gap 9 BUN 16 Creatinine 0.71 Est GFR ( Amer) > 60 Glucose 93 Lactic Acid 4.6 H Calcium 9.1 Magnesium 1.9 TSH 04/22/19 05:47 WBC RBC Hgb Hct MCV MCH MCHC RDW Plt Count Seg Neutrophils % Sodium Potassium Chloride Carbon Dioxide Anion Gap BUN Creatinine Est GFR ( Amer) Glucose Lactic Acid Calcium Magnesium TSH 0.49 Impressions: Chest X-Ray 04/20/19 17:33 IMPRESSION: No acute cardiopulmonary process. Cervical Spine CT 04/20/19 20:21 IMPRESSION: No acute cervical spinal fracture is identified. Head CT 04/20/19 20:21 IMPRESSION: No acute intracranial abnormality is identified. Findings suggesting chronic sinusitis Generalized atrophy with microvascular ischemic changes. Assessment & Plan - Diagnosis (1) Dehydration Is this a current diagnosis for this admission?: Yes Plan: Continue IV fluids. Encouraged PO intake. (2) Fever and neutropenia Is this a current diagnosis for this admission?: Yes Plan: Tmax was 100.5 and ANC is 1.0. Continue current antibiotics. Will need to be afebrile x 24 hours with ANC >1 (3) Gastric carcinoma Is this a current diagnosis for this admission?: Yes Plan: Treatment currently on hold for neutropenic fever. Further discussion as outpatient. - Time Time Spent with patient: 15-24 minutes
--- NOTE | 2019-04-22 16:21 | PDOC PROGRESS REPORT ---
Subjective Progress Note for:: 04/22/19 Subjective:: Patient noted to have gone into atrial fibrillation during the night. He denies any new symptoms Reason For Visit: NEUTROPENIC FEVER,GENERALIZED WEAKNESS Physical Exam Vital Signs: Temp Pulse Resp BP Pulse Ox 97.8 F 100 16 128/78 H 92 04/22/19 07:18 04/22/19 15:00 04/22/19 07:18 04/22/19 15:00 04/22/19 07:18 Intake & Output 04/21/19 04/22/19 04/23/19 06:59 06:59 06:59 Intake Total 2049 2927 602 Output Total 50 Balance 2049 2877 602 Weight 76 kg 61.5 kg General appearance: PRESENT: no acute distress, thin, other - Chronically ill looking Mouth exam: PRESENT: dry mucosa Respiratory exam: PRESENT: clear to auscultation patel, unlabored. ABSENT: rho nchi, wheezes Cardiovascular exam: PRESENT: irregular rhythm, +S1, +S2 GI/Abdominal exam: PRESENT: soft. ABSENT: tenderness Rectal exam: PRESENT: deferred Extremities exam: ABSENT: calf tenderness Musculoskeletal exam: ABSENT: ambulatory Neurological exam: PRESENT: alert, awake, oriented to time, oriented to situation Skin exam: PRESENT: dry Results Laboratory Results: 04/22/19 05:47 04/22/19 05:47 04/22/19 04/22/19 04/22/19 05:47 05:47 05:47 WBC 2.7 L RBC 3.02 L Hgb 10.0 L Hct 28.9 L MCV 96 MCH 33.0 MCHC 34.6 RDW 17.6 H Plt Count 141 L Seg Neutrophils % Not Reportable Sodium 138.8 Potassium 4.3 Chloride 105 Carbon Dioxide 25 Anion Gap 9 BUN 16 Creatinine 0.71 Est GFR ( Amer) > 60 Glucose 93 Calcium 9.1 Magnesium 1.9 TSH 0.49 Impressions: Chest X-Ray 04/20/19 17:33 IMPRESSION: No acute cardiopulmonary process. Cervical Spine CT 04/20/19 20:21 IMPRESSION: No acute cervical spinal fracture is identified. Head CT 04/20/19 20:21 IMPRESSION: No acute intracranial abnormality is identified. Findings suggesting chronic sinusitis Generalized atrophy with microvascular ischemic changes. Assessment and Plan - Diagnosis (1) Atrial fibrillation with rapid ventricular response Is this a current diagnosis for this admission?: Yes Plan: Patient went into atrial fibrillation with rapid ventricle response overnight. He was placed on Cardizem IV. His heart rate is better controlled although he is still in atrial fibrillation. An echocardiogram has been obtained. He is currently on no anticoagulant. His chads vascular score is less than 1. Given patient's poor functional status and is really low chads score I will hold off on any anticoagulant now. Will follow up on echocardiogram results and decide on further management (2) Fever and neutropenia Is this a current diagnosis for this admission?: Yes Plan: Total white count is 2.7 with 53% neutrophil count. Blood cultures are negative and there is been no other localized source of infection however patient continues on cefepime and vancomycin. He has remained afebrile over the last 24 hours. His T-max was 100.5 (3) Gastric carcinoma Is this a current diagnosis for this admission?: Yes Plan: Patient is being seen by oncology. He is still being actively treated. (4) Hypertension Qualifiers: Hypertension type: essential hypertension Qualified Code(s): I10 - Essential (primary) hypertension Is this a current diagnosis for this admission?: Yes Plan: We will continue with Cardizem orally - Time Time Spent with patient: 15-24 minutes Medications reviewed and adjusted accordingly: Yes Anticipated discharge: Home Within: within 72 hours
[2019-04-22] MEDS: DILTIAZEM HCL 60 MG TABLET PO SCH ×2 (17:19→21:25)
--- NOTE | 2019-04-22 19:33 | Progress Note ---
Provider Note Provider Note: Critical care note: 04/22/2019 Critical care onset: 04:18 Critical care issue: Sudden onset atrial fibrillation with rapid ventricular response I was called by the patient's nurse due to his sudden change in heart rhythm. Patient developed atrial fibrillation with rapid ventricular response per monitor. Patient was asymptomatic and sleeping. I evaluated the patient and he complained of no chest pain or other symptoms. He was not aware of his rapid heart rate until he was told about it but did not experience any palpitations or other discomfort. Lungs were clear to auscultation with easy respirations noted. Heart showed a irregularly irregular rate and rhythm with a marked tachycardia. Abdomen is soft with bowel sounds present in all purcell extremities reveal no clubbing cyanosis or edema. Patient was started on a Cardizem therapeutic plan with an initial bolus of 25 mg slowing the heart rate to the 90s but the heart rate was noted to increase over the next hour or so requiring a re-bolus of Cardizem 10 mg x 1 with a Cardizem infusion initiated at the same time and titrated to rate control. Critical care end time: 06:16 Total critical care time: 21 minutes
[2019-04-23] MEDS: VANCOMYCIN HCL 1,250 MG in DEXTROSE 5%-WATER 250 ML IV SCH ×2 (05:54→17:17)
[2019-04-23] MEDS: DILTIAZEM HCL 60 MG TABLET PO SCH (05:54)
[2019-04-23] MEDS ORDERED: PHARMACY COMMUNICATION ORDER MC SCH (06:00)
[2019-04-23] MEDS: HEPARIN SOD (PORCINE) 5,000 UNIT/ML 1 ML VIAL SUBCUT SCH ×3 (06:03→21:10)
[2019-04-23 06:55] LABS: VANCOMYCIN,TROUGH 13.9 ug/mL (5.0-20.0)
[2019-04-23 07:06] LABS: HEMATOCRIT 27.4 % (37.9-51.0); HEMOGLOBIN 9.4 g/dL (13.5-17.0); MEAN CORPUSCULAR HEMOGLOBIN 32.5 pg (27.0-33.4); MEAN CORPUSCULAR HGB CONC 34.2 g/dL (32.0-36.0); MEAN CORPUSCULAR VOLUME 95 fl (80-97); PLATELET COUNT 117 10^3/uL (150-450); RED BLOOD COUNT 2.89 10^6/uL (4.35-5.55); RED CELL DISTRIBUTION WIDTH 17.3 % (11.5-14.0); WHITE BLOOD COUNT 6.4 10^3/uL (4.0-10.5)
[2019-04-23 07:11] LABS: ABSOLUTE LYMPHOCYTES# (MANUAL) 0.2 10^3/uL (0.5-4.7); ABSOLUTE MONOCYTES # (MANUAL) 0.6 10^3/uL (0.1-1.4); BAND NEUTROPHILS % (MANUAL) 6 % (3-5); BASOPHILS % (MANUAL) 0 % (0-2); EOSINOPHILS % (MANUAL) 0 % (0-6); LYMPHOCYTES % (MANUAL) 3 % (13-45); MONOCYTES % (MANUAL) 10 % (3-13); SEGMENTED NEUTROPHILS % (MAN) 81 % (42-78); TOTAL CELLS COUNTED 100
[2019-04-23 07:12] LABS: ANISOCYTOSIS 1+; OVALOCYTES SLIGHT
[2019-04-23 07:13] LABS: PLATELET COMMENT DECREASED
[2019-04-23] MEDS: INSULIN REG, HUMAN 100 UNIT/ML 3 ML VIAL (PYX) SUBCUT SCH ×4 (08:20→23:17)
--- NOTE | 2019-04-23 09:14 | PDOC PROGRESS REPORT ---
Subjective Progress Note for:: 04/23/19 Subjective:: Patient converted to sinus rhythm. He was taken off the Cardizem drip and had been started on oral Cardizem. Reason For Visit: NEUTROPENIC FEVER,GENERALIZED WEAKNESS Physical Exam Vital Signs: Temp Pulse Resp BP Pulse Ox 98.3 F 64 16 119/61 96 04/23/19 07:37 04/23/19 07:37 04/23/19 07:37 04/23/19 07:37 04/23/19 07:37 Intake & Output 04/22/19 04/23/19 04/24/19 06:59 06:59 06:59 Intake Total 2927 1104 250 Output Total 50 Balance 2877 1104 250 Weight 61.5 kg 60.8 kg General appearance: PRESENT: no acute distress, thin, other - Chronically ill looking Head exam: PRESENT: atraumatic Mouth exam: PRESENT: dry mucosa Neck exam: PRESENT: full ROM. ABSENT: JVD Respiratory exam: PRESENT: clear to auscultation patel, unlabored Cardiovascular exam: PRESENT: RRR, +S1, +S2 Rectal exam: PRESENT: deferred Musculoskeletal exam: PRESENT: ambulatory Neurological exam: PRESENT: alert, awake, oriented to person, oriented to time, oriented to situation Psychiatric exam: PRESENT: appropriate affect Results Laboratory Results: 04/23/19 06:01 04/23/19 06:01 04/23/19 04/23/19 06:01 06:01 WBC 6.4 D RBC 2.89 L Hgb 9.4 L Hct 27.4 L MCV 95 MCH 32.5 MCHC 34.2 RDW 17.3 H Plt Count 117 L Seg Neutrophils % Not Reportable Creatinine 0.57 Est GFR ( Amer) > 60 Impressions: Chest X-Ray 04/20/19 17:33 IMPRESSION: No acute cardiopulmonary process. Cervical Spine CT 04/20/19 20:21 IMPRESSION: No acute cervical spinal fracture is identified. Head CT 04/20/19 20:21 IMPRESSION: No acute intracranial abnormality is identified. Findings suggesting chronic sinusitis Generalized atrophy with microvascular ischemic changes. Assessment and Plan - Diagnosis (1) Atrial fibrillation with rapid ventricular response Is this a current diagnosis for this admission?: Yes Plan: Patient is currently in sinus rhythm. His atrial fibrillation was likely from his acute illness. Echocardiogram is pending. At this time patient requires no further intervention. Will adjust Cardizem as appropriate (2) Fever and neutropenia Is this a current diagnosis for this admission?: Yes Plan: His WBC is recovered. Patient is on day 3 of empiric cefepime and vancomycin. Because we do not have a source I will continue with his regimen for now. Patient has also remained afebrile (3) Gastric carcinoma Is this a current diagnosis for this admission?: Yes Plan: Follow-up with oncology as outpatient (4) Hypertension Qualifiers: Hypertension type: essential hypertension Qualified Code(s): I10 - Essential (primary) hypertension Is this a current diagnosis for this admission?: Yes Plan: Continue with Cardizem - Time Time Spent with patient: 25-34 minutes - was also in the room and she was updated on patient's condition and plan of management Medications reviewed and adjusted accordingly: Yes Anticipated discharge: Home Within: within 48 hours
--- NOTE | 2019-04-23 10:12 | XCELERA REPORT ---
[address] [address] Transthoracic Echocardiogram Report Name: NOY RIDER Age: 78 yrs Gender: Male : 1940 Patient Status: Inpatient Patient Location: [address] [place] [address] Study Date: 04/22/2019 05:38 PM Height: 73 in Weight: 135 lb BSA: 1.8 m2 Procedure: A complete two-dimensional transthoracic echocardiogram was performed (2D, M-mode, spectral and color flow Doppler). The study was technically difficult with many images being suboptimal in quality. Reason For Study: rhythm change Ordering Physician: NINA PARKER Performed By: Ivone Chou Interpretation Summary Left ventricular systolic function is low normal. There is mild concentric left ventricular hypertrophy. The left ventricle is grossly normal size. LV diastolic function could not be adequately assessed. Regional wall motion abnormalities cannot be excluded due to limited visualization. Right ventricular function cannot be assessed due to poor image quality. The left atrium is mildly dilated. The right atrium is normal in size There is a mild amount of mitral regurgitation There is no mitral valve stenosis. There is no aortic valve stenosis No aortic regurgitation is present. There is a trace or physiologic amount of tricuspid regurgitation Tricuspid regurgitation jet envelope not well defined to measure RV systolic pressure accurately. The aortic root is not well visualized. The inferior vena cava appeared normal and decreased > 50% with respiration (RAP 5-10 mmHg) There is no pericardial effusion. MMode/2D Measurements & Calculations RVDd: 1.4 cm LVIDd: 4.3 cm FS: 36.2 % Ao root diam: 3.4 cm IVSd: 0.85 cm LVIDs: 2.8 cm EDV(Teich): 84.5 ml Ao root area: 9.2 cm2 LVPWd: 0.76 cm ESV(Teich): 28.5 ml LA dimension: 1.9 cm EF(Teich): 66.2 % Doppler Measurements & Calculations MV E max joseph: MV P1/2t max joseph: Ao V2 max: LV V1 max P.8 cm/sec 94.6 cm/sec 111.7 cm/sec 2.8 mmHg MV P1/2t: 46.4 msec Ao max PG: LV V1 max: MVA(P1/2t): 4.7 cm2 5.0 mmHg 84.4 cm/sec MV dec slope: 597.2 cm/sec2 MV dec time: 0.20 sec MR max joseph: PA V2 max: TR max joseph: MV P1/2t-pr_phl: 447.9 cm/sec 99.3 cm/sec 188.7 cm/sec 46.4 msec MR max PG: PA max P.9 mmHg TR max P.3 mmHg 14.2 mmHg Left Ventricle The left ventricle is grossly normal size. There is mild concentric left ventricular hypertrophy. Left ventricular systolic function is low normal. LV diastolic function could not be adequately assessed. Regional wall motion abnormalities cannot be excluded due to limited visualization. Right Ventricle The right ventricle is grossly normal size. Right ventricular function cannot be assessed due to poor image quality. Atria The right atrium is normal in size. The left atrium is mildly dilated. Interarterial septum not well visualized and not well dopplered. Cannot comment on ASD/PFO presence. Mitral Valve The mitral valve leaflets are sclerotic, but show no functional abnormalities. There is no mitral valve stenosis. There is a mild amount of mitral regurgitation. Aortic Valve The aortic valve is grossly normal. There is no aortic valve stenosis. No aortic regurgitation is present. Tricuspid Valve The tricuspid valve is not well visualized secondary to technical limitations. There is no tricuspid stenosis. There is a trace or physiologic amount of tricuspid regurgitation. Tricuspid regurgitation jet envelope not well defined to measure RV systolic pressure accurately. Pulmonic Valve The pulmonic valve is not well visualized. Great Vessels The aortic root is not well visualized. The inferior vena cava appeared normal and decreased > 50% with respiration (RAP 5-10 mmHg). Effusions There is no pericardial effusion. : NINA PARKER Shyamal
[2019-04-23] MEDS: CEFEPIME HCL 2 GM in DEXTROSE 5%-WATER 50 ML IV SCH ×2 (11:41→21:15)
[2019-04-23] MEDS: MEGESTROL ACETATE SUSP 400 MG/10 ML UDCUP PO SCH (11:41)
[2019-04-23] MEDS: FAMOTIDINE 20 MG TABLET PO SCH ×2 (11:42→21:13)
[2019-04-23] MEDS ORDERED: DILTIAZEM HCL 60 MG TABLET PO SCH ×2 (12:00→22:00)
[2019-04-23] MEDS: DILTIAZEM HCL 30 MG TABLET PO SCH (21:12)
[2019-04-24] MEDS: HEPARIN SOD (PORCINE) 5,000 UNIT/ML 1 ML VIAL SUBCUT SCH ×3 (05:37→21:42)
[2019-04-24 05:38] LABS: HEMOGLOBIN 9.8 g/dL (13.5-17.0); MEAN CORPUSCULAR HEMOGLOBIN 32.9 pg (27.0-33.4); MEAN CORPUSCULAR HGB CONC 35.1 g/dL (32.0-36.0); MEAN CORPUSCULAR VOLUME 94 fl (80-97); PLATELET COUNT 102 10^3/uL (150-450); RED BLOOD COUNT 2.99 10^6/uL (4.35-5.55); WHITE BLOOD COUNT 9.6 10^3/uL (4.0-10.5)
[2019-04-24] MEDS: VANCOMYCIN HCL 1,250 MG in DEXTROSE 5%-WATER 250 ML IV SCH (05:39)
[2019-04-24] MEDS: DILTIAZEM HCL 30 MG TABLET PO SCH ×3 (05:39→21:42)
[2019-04-24 06:05] LABS: ABSOLUTE LYMPHOCYTES# (MANUAL) 0.2 10^3/uL (0.5-4.7); ABSOLUTE MONOCYTES # (MANUAL) 0.3 10^3/uL (0.1-1.4); BASOPHILS % (MANUAL) 0 % (0-2); EOSINOPHILS % (MANUAL) 2 % (0-6); LYMPHOCYTES % (MANUAL) 2 % (13-45); MONOCYTES % (MANUAL) 3 % (3-13); SEGMENTED NEUTROPHILS % (MAN) 93 % (42-78); TOTAL CELLS COUNTED 100
[2019-04-24 06:06] LABS: ANISOCYTOSIS 1+; OVALOCYTES 1+; PLATELET COMMENT DECREASED; POIKILOCYTOSIS 1+; TEAR DROP CELLS SLIGHT
[2019-04-24] MEDS: INSULIN REG, HUMAN 100 UNIT/ML 3 ML VIAL (PYX) SUBCUT SCH ×2 (10:04→12:26)
[2019-04-24] MEDS: MEGESTROL ACETATE SUSP 400 MG/10 ML UDCUP PO SCH (10:13)
[2019-04-24] MEDS: CEFEPIME HCL 2 GM in DEXTROSE 5%-WATER 50 ML IV SCH ×2 (10:14→21:54)
[2019-04-24] MEDS: FAMOTIDINE 20 MG TABLET PO SCH ×2 (10:14→21:42)
--- NOTE | 2019-04-24 11:35 | PDOC PROGRESS REPORT ---
Subjective Progress Note for:: 04/24/19 Subjective:: Patient still very weak, did walk with physical therapy but needed a full assist, encouraged more p.o. intake discussed case with hospitalist team, spent about 35 minutes in discussion Reason For Visit: NEUTROPENIC FEVER,GENERALIZED WEAKNESS Physical Exam Vital Signs: Temp Pulse Resp BP Pulse Ox 97.5 F 74 18 122/76 100 04/24/19 11:16 04/24/19 11:16 04/24/19 11:16 04/24/19 11:16 04/24/19 11:16 Intake & Output 04/23/19 04/24/19 04/25/19 06:59 06:59 06:59 Intake Total 1104 1040 250 Balance 1104 1040 250 Weight 60.8 kg 63.6 kg General appearance: PRESENT: no acute distress, well-developed, well-nourished Head exam: PRESENT: atraumatic, normocephalic Eye exam: PRESENT: conjunctiva pink, EOMI, PERRLA. ABSENT: scleral icterus Ear exam: PRESENT: normal external ear exam Mouth exam: PRESENT: moist, tongue midline Neck exam: ABSENT: carotid bruit, JVD, lymphadenopathy, thyromegaly Respiratory exam: PRESENT: clear to auscultation patel. ABSENT: rales, rhonchi, wheezes Cardiovascular exam: PRESENT: RRR. ABSENT: diastolic murmur, rubs, systolic murmur Pulses: PRESENT: normal dorsalis pedis pul Vascular exam: PRESENT: normal capillary refill GI/Abdominal exam: PRESENT: normal bowel sounds, soft. ABSENT: distended, guarding, mass, organolmegaly, rebound, tenderness Rectal exam: PRESENT: deferred Extremities exam: PRESENT: full ROM. ABSENT: calf tenderness, clubbing, pedal edema Neurological exam: PRESENT: alert, awake, oriented to person, oriented to place, oriented to time, oriented to situation, CN II-XII grossly intact. ABSENT: motor sensory deficit Psychiatric exam: PRESENT: appropriate affect, normal mood. ABSENT: homicidal ideation, suicidal ideation Skin exam: PRESENT: dry, intact, warm. ABSENT: cyanosis, rash Results Laboratory Results: 04/24/19 04:46 04/23/19 06:01 04/24/19 04:46 WBC 9.6 RBC 2.99 L Hgb 9.8 L Hct 28.0 L MCV 94 MCH 32.9 MCHC 35.1 RDW 17.0 H Plt Count 102 L Seg Neutrophils % Not Reportable Impressions: Chest X-Ray 04/20/19 17:33 IMPRESSION: No acute cardiopulmonary process. Cervical Spine CT 04/20/19 20:21 IMPRESSION: No acute cervical spinal fracture is identified. Head CT 04/20/19 20:21 IMPRESSION: No acute intracranial abnormality is identified. Findings suggesting chronic sinusitis Generalized atrophy with microvascular ischemic changes. Assessment & Plan - Diagnosis (1) Fever and neutropenia Is this a current diagnosis for this admission?: Yes Plan: Continue with cefepime but we can DC vancomycin (2) Gastric carcinoma Is this a current diagnosis for this admission?: Yes Plan: Remain on hold until patient get stronger (3) Weakness Is this a current diagnosis for this admission?: Yes Plan: Hopefully will improve with physical therapy, encouraged improved nutrition (4) Dehydration Is this a current diagnosis for this admission?: Yes Plan: Continue with hydration - Time Time Spent with patient: 35 or more minutes
--- NOTE | 2019-04-24 12:42 | PDOC PROGRESS REPORT ---
Subjective Progress Note for:: 04/24/19 Subjective:: Patient continues to recover from his acute febrile illness. He however is pretty weak and still requiring assistance with ADLs as well as ambulation. His appetite is still also pretty poor Reason For Visit: NEUTROPENIC FEVER,GENERALIZED WEAKNESS Physical Exam Vital Signs: Temp Pulse Resp BP Pulse Ox 97.5 F 74 18 122/76 100 04/24/19 11:16 04/24/19 11:16 04/24/19 11:16 04/24/19 11:16 04/24/19 11:16 Intake & Output 04/23/19 04/24/19 04/25/19 06:59 06:59 06:59 Intake Total 1104 1040 300 Balance 1104 1040 300 Weight 60.8 kg 63.6 kg General appearance: PRESENT: no acute distress, thin, other - Chronically ill looking Head exam: PRESENT: atraumatic, normocephalic Eye exam: PRESENT: EOMI, PERRLA. ABSENT: scleral icterus Ear exam: PRESENT: normal external ear exam Mouth exam: PRESENT: tongue midline Neck exam: ABSENT: carotid bruit, JVD, lymphadenopathy, thyromegaly Respiratory exam: PRESENT: clear to auscultation patel. ABSENT: rales, rhonchi, wheezes Cardiovascular exam: PRESENT: irregular rhythm, +S1, +S2. ABSENT: diastolic murmur, rubs, systolic murmur Pulses: PRESENT: normal dorsalis pedis pul Vascular exam: PRESENT: normal capillary refill GI/Abdominal exam: PRESENT: normal bowel sounds, soft. ABSENT: distended, guarding, mass, organolmegaly, rebound, tenderness Rectal exam: PRESENT: deferred Extremities exam: PRESENT: full ROM. ABSENT: calf tenderness, clubbing, pedal edema Neurological exam: PRESENT: alert, awake, oriented to person, oriented to place, oriented to time, oriented to situation, CN II-XII grossly intact. ABSENT: motor sensory deficit Psychiatric exam: PRESENT: appropriate affect, normal mood. ABSENT: homicidal ideation, suicidal ideation Skin exam: PRESENT: dry, intact, warm. ABSENT: cyanosis, rash Results Laboratory Results: 04/24/19 04:46 04/23/19 06:01 04/24/19 04:46 WBC 9.6 RBC 2.99 L Hgb 9.8 L Hct 28.0 L MCV 94 MCH 32.9 MCHC 35.1 RDW 17.0 H Plt Count 102 L Seg Neutrophils % Not Reportable Impressions: Chest X-Ray 04/20/19 17:33 IMPRESSION: No acute cardiopulmonary process. Cervical Spine CT 04/20/19 20:21 IMPRESSION: No acute cervical spinal fracture is identified. Head CT 04/20/19 20:21 IMPRESSION: No acute intracranial abnormality is identified. Findings suggesting chronic sinusitis Generalized atrophy with microvascular ischemic changes. Assessment and Plan - Diagnosis (1) Atrial fibrillation with rapid ventricular response Is this a current diagnosis for this admission?: Yes (2) Fever and neutropenia Is this a current diagnosis for this admission?: Yes (3) Gastric carcinoma Is this a current diagnosis for this admission?: Yes (4) Hypertension Qualifiers: Hypertension type: essential hypertension Qualified Code(s): I10 - Essential (primary) hypertension Is this a current diagnosis for this admission?: Yes (5) Severe protein-calorie malnutrition Is this a current diagnosis for this admission?: Yes Plan: Due to his underlying gastric carcinoma. We will add Ensure to his diet and encourage eating - Plan Summary Summary: Echocardiogram shows left ventricular systolic function to be low normal with mild concentric left ventricular hypertrophy. The right atrium is normal in size while the left atrium is mildly dilated. Patient appears to be in sinus rhythm. At this time no further interventions will be planned. We will continue with Cardizem which will also help with his blood pressure. Given his comorbidities he is not a candidate for anticoagulation and his chads score is also low Is for physical therapy and hopefully discharge in 24 to 48 hours
[2019-04-25] MEDS: DILTIAZEM HCL 30 MG TABLET PO SCH ×3 (05:37→21:31)
[2019-04-25] MEDS: HEPARIN SOD (PORCINE) 5,000 UNIT/ML 1 ML VIAL SUBCUT SCH ×3 (05:37→21:11)
[2019-04-25] MEDS: FAMOTIDINE 20 MG TABLET PO SCH ×2 (10:46→21:31)
[2019-04-25] MEDS: MEGESTROL ACETATE SUSP 400 MG/10 ML UDCUP PO SCH (10:46)
[2019-04-25] MEDS: CEFEPIME HCL 2 GM in DEXTROSE 5%-WATER 50 ML IV SCH ×2 (10:46→21:31)
--- NOTE | 2019-04-25 16:26 | PDOC PROGRESS REPORT ---
Subjective Progress Note for:: 04/25/19 Subjective:: Patient continues to recover from his acute febrile illness. He however is pretty weak and still requiring assistance with ADLs as well as ambulation. His appetite is still also pretty poor although appears to be better today patient does look somewhat brighter today. Reason For Visit: NEUTROPENIC FEVER,GENERALIZED WEAKNESS Physical Exam Vital Signs: Temp Pulse Resp BP Pulse Ox 99.3 F 81 18 125/69 100 04/25/19 11:13 04/25/19 14:00 04/25/19 11:13 04/25/19 11:13 04/25/19 11:13 Intake & Output 04/24/19 04/25/19 04/26/19 06:59 06:59 06:59 Intake Total 1040 940 290 Balance 1040 940 290 Weight 63.6 kg 61.3 kg General appearance: PRESENT: no acute distress, thin, other - Chronically ill looking Head exam: PRESENT: atraumatic Mouth exam: PRESENT: dry mucosa Neck exam: PRESENT: full ROM. ABSENT: JVD Respiratory exam: PRESENT: clear to auscultation patel, unlabored. ABSENT: rhonchi Cardiovascular exam: PRESENT: RRR, +S1, +S2 GI/Abdominal exam: PRESENT: soft Rectal exam: PRESENT: deferred Musculoskeletal exam: PRESENT: ambulatory Neurological exam: PRESENT: alert, awake, oriented to person, oriented to place, oriented to time, oriented to situation Psychiatric exam: PRESENT: appropriate affect Results Laboratory Results: 04/24/19 04:46 04/23/19 06:01 Impressions: Chest X-Ray 04/20/19 17:33 IMPRESSION: No acute cardiopulmonary process. Cervical Spine CT 04/20/19 20:21 IMPRESSION: No acute cervical spinal fracture is identified. Head CT 04/20/19 20:21 IMPRESSION: No acute intracranial abnormality is identified. Findings suggesting chronic sinusitis Generalized atrophy with microvascular ischemic changes. Assessment and Plan - Diagnosis (1) Atrial fibrillation with rapid ventricular response Is this a current diagnosis for this admission?: Yes Plan: Transient. patient is currently in sinus rhythm. His atrial fibrillation was likely from his acute illness. Echocardiogram is pending. At this time patient requires no further intervention. Continue Cardizem at current dosage and adjust as needed (2) Fever and neutropenia Is this a current diagnosis for this admission?: Yes Plan: His WBC is recovered. Patient received 5 days of cefepime and 4 days of vancomycin, the vancomycin has been discontinued and I will DC cefepime and place him on Augmentin probably for 2-5 more days starting tomorrow. (3) Gastric carcinoma Is this a current diagnosis for this admission?: Yes Plan: Follow-up with oncology as outpatient (4) Hypertension Qualifiers: Hypertension type: essential hypertension Qualified Code(s): I10 - Essential (primary) hypertension Is this a current diagnosis for this admission?: Yes Plan: Continue with Cardizem (5) Severe protein-calorie malnutrition Is this a current diagnosis for this admission?: Yes Plan: Due to his underlying gastric carcinoma. Continue Ensure and encourage eating - Plan Summary Summary: Echocardiogram shows left ventricular systolic function to be low normal with mild concentric left ventricular hypertrophy. The right atrium is normal in size while the left atrium is mildly dilated. Patient appears to be in sinus rhythm. At this time no further interventions will be planned. continue with Cardizem which will also help with his blood pressure. Given his comorbidities he is not a candidate for anticoagulation and his chads score is also low - Time Time Spent with patient: 15-24 minutes Medications reviewed and adjusted accordingly: Yes Anticipated discharge: Home with Homehealth Within: within 24 hours
[2019-04-26] MEDS: HEPARIN SOD (PORCINE) 5,000 UNIT/ML 1 ML VIAL SUBCUT SCH (05:52)
[2019-04-26] MEDS ORDERED: AMOXICILLIN TR/POT CLAVULANATE 500-125 MG TAB PO SCH (06:00)
[2019-04-26] MEDS: DILTIAZEM HCL 30 MG TABLET PO SCH (06:03)
[2019-04-26 08:45] VITALS: BP 120/68
[2019-04-26] MEDS: FAMOTIDINE 20 MG TABLET PO SCH (09:25)
[2019-04-26] MEDS: MEGESTROL ACETATE SUSP 400 MG/10 ML UDCUP PO SCH (09:26)
[2019-04-26] MEDS ORDERED: DILTIAZEM HCL 120 MG CAP.SR.24H PO SCH (10:00)
--- NOTE | 2019-04-26 11:30 | PDOC PROGRESS REPORT ---
Subjective Progress Note for:: 04/26/19 Subjective:: Patient without complaints today. States he is feeling stronger every day. ROS: He denies Chest pain, abdominal pain, dyspnea. Reason For Visit: NEUTROPENIC FEVER,GENERALIZED WEAKNESS Physical Exam Vital Signs: Temp Pulse Resp BP Pulse Ox 99.0 F 65 17 120/68 95 04/26/19 07:29 04/26/19 07:29 04/26/19 07:29 04/26/19 07:29 04/26/19 07:29 Intake & Output 04/25/19 04/26/19 04/27/19 06:59 06:59 06:59 Intake Total 940 770 50 Balance 940 770 50 Weight 61.3 kg 61.1 kg General appearance: PRESENT: well-developed, well-nourished Exam: Tall, male. Head exam: PRESENT: atraumatic, normocephalic Respiratory exam: PRESENT: clear to auscultation patel, unlabored Cardiovascular exam: PRESENT: RRR. ABSENT: systolic murmur GI/Abdominal exam: PRESENT: soft. ABSENT: tenderness Extremities exam: ABSENT: pedal edema Neurological exam: PRESENT: alert, awake Psychiatric exam: PRESENT: appropriate affect Skin exam: PRESENT: normal color Results Laboratory Results: 04/24/19 04:46 04/23/19 06:01 04/20/19 18:41 Blood Blood Culture - Final NO GROWTH IN 5 DAYS 04/20/19 17:38 Blood Blood Culture - Final NO GROWTH IN 5 DAYS Impressions: Chest X-Ray 04/20/19 17:33 IMPRESSION: No acute cardiopulmonary process. Cervical Spine CT 04/20/19 20:21 IMPRESSION: No acute cervical spinal fracture is identified. Head CT 04/20/19 20:21 IMPRESSION: No acute intracranial abnormality is identified. Findings suggesting chronic sinusitis Generalized atrophy with microvascular ischemic changes. Assessment & Plan - Diagnosis (1) Dehydration Is this a current diagnosis for this admission?: Yes Plan: Resolved. (2) Fever and neutropenia Is this a current diagnosis for this admission?: Yes Plan: Both resolved. Agree with plan for oral Augmentin to complete total of 10 days of antibiotics. (3) Gastric carcinoma Is this a current diagnosis for this admission?: Yes Plan: All treatment currently on hold. - Time Time Spent with patient: 15-24 minutes - Plan Summary Plan Summary: OK for discharge from my standpoint. Please call again if needed.
--- NOTE | 2019-04-26 12:20 | PDOC DISCHARGE SUMMARY ---
Impression - Admit/DC Date/PCP Admission Date/Primary Care Provider: 04/21/19 04:11 HERNANDEZ PORRAS MD Discharge Date: 04/26/19 - Discharge Diagnosis (1) Atrial fibrillation with rapid ventricular response Is this a current diagnosis for this admission?: Yes (2) Fever and neutropenia Is this a current diagnosis for this admission?: Yes (3) Fall Is this a current diagnosis for this admission?: Yes (4) Gastric carcinoma Is this a current diagnosis for this admission?: Yes (5) Hypertension Is this a current diagnosis for this admission?: Yes (6) Severe protein-calorie malnutrition Is this a current diagnosis for this admission?: Yes - Additional Information Resuscitation Status: Full Code Discharge Diet: As Tolerated Referrals: HERNANDEZ PORRAS MD [Primary Care Provider] - 04/29/19 2:30 pm ( ) Prescriptions: Amox Tr/Potassium Clavulanate [Augmentin "500" Tablet] 1 tab PO Q8 4 Days tablet Diltiazem HCl [Cardizem Cd 120 mg Capsule] 120 mg PO DAILY #30 cap.sr.24h Megestrol Acetate [Megace Love 400 mg/10 ml Udcup] 800 mg PO DAILY 30 Days Home Medications: Diphenoxylate HCl/Atropine [Lomotil 2.5-0.025 mg Tablet] 1 tab PO ASDIR PRN 04/21/19 Dronabinol 5 mg PO BID 04/21/19 Amox Tr/Potassium Clavulanate [Augmentin "500" Tablet] 1 tab PO Q8 4 Days tablet 04/26/19 Diltiazem HCl [Cardizem Cd 120 mg Capsule] 120 mg PO DAILY #30 cap.sr.24h 04/26/19 Megestrol Acetate [Megace Love 400 mg/10 ml Udcup] 800 mg PO DAILY 30 Days 04/26/19 History of Present Illiness History of Present Illness: NOY RIDER is a 78 year old male who presented to the emergency room with a 2-day history of weakness. Patient admits to generalized weakness accompanied by a subjective fever for the last 2 days. His weakness has been constant and moderate, resulting in a mild fall (without injury) in the bathtub on the day prior to admission. His weakness is also been associated with intermittent headaches and postprandial diarrhea. He denies other associated or accompanying signs and symptoms. He admits prior similar episodes with chemotherapy in the past. He has been receiving chemotherapy for his carcinoma with his last dose being less than 1 week ago. He was forced to skip chemotherapy on Friday be cause his bilirubin was elevated and his oncologist chose to give him IV fluids instead with a plan to follow-up on . He has not identified any additional aggravating or ameliorating factors for his weakness. In the emergency room he was found to be neutropenic with an absolute neutrophil count less than 1000 and was noted to have a low-grade fever. He was started on empiric antibiotic therapy at the direction of Dr. Green. Patient was subsequently admitted to the hospital for further evaluation and treatment. Hospital Course Hospital Course: Patient presented with complaints of fever. He had also experienced a fall and was experiencing headache initially on presentation. He had a CT of his head and cervical spine as part of trauma work-up which was negative. He was found to be neutropenic significantly on labs which is likely due to patient's chemotherapy. He was thus diagnosed with neutropenic fever and admitted for antibiotics. Blood cultures were obtained which were negative. Patient was initially started on broad-spectrum IV antibiotics with vancomycin and cefepime which he was on for several days. He was later transitioned to Augmentin. Oncologist recommending completion of 10-day course for treatment of neutropenic fever and as such I will be discharging patient on Augmentin for 4 more days. Patient has been afebrile for couple of days. Patient was also noted to have atrial fibrillation with rapid ventricular response upon presentation. It is unknown if patient's atrial fibrillation is persistent, paroxysmal, permanent or chronic but I do suspect persistent A. fib. Patient has been placed on Cardizem and I have transition patient to sustained-release dose today. Patient stays in atrial fibrillation but is rate controlled at the moment. Patient is to follow- up with his primary care provider for further care. Patient is also on Megace and dronabinol to help with appetite stimulation see has significant malnutrition. Patient has been set up for home health. Patient is stable to be discharged at this time. Physical Exam Vital Signs: Temp Pulse Resp BP Pulse Ox 99.0 F 65 17 120/68 95 04/26/19 07:29 04/26/19 07:29 04/26/19 07:29 04/26/19 07:29 04/26/19 07:29 Intake & Output 04/25/19 04/26/19 04/27/19 06:59 06:59 06:59 Intake Total 940 770 50 Balance 940 770 50 Weight 61.3 kg 61.1 kg General appearance: PRESENT: no acute distress, cooperative, thin Neck exam: ABSENT: JVD Cardiovascular exam: PRESENT: irregular rhythm, +S1, +S2. ABSENT: tachycardia GI/Abdominal exam: PRESENT: soft. ABSENT: rigid, tenderness Neurological exam: PRESENT: alert, awake, oriented to person, oriented to place, oriented to time Results Laboratory Results: WBC 9.6 10^3/uL (4.0-10.5) 04/24/19 04:46 RBC 2.99 10^6/uL (4.35-5.55) L 04/24/19 04:46 Hgb 9.8 g/dL (13.5-17.0) L 04/24/19 04:46 Hct 28.0 % (37.9-51.0) L 04/24/19 04:46 MCV 94 fl (80-97) 04/24/19 04:46 MCH 32.9 pg (27.0-33.4) 04/24/19 04:46 MCHC 35.1 g/dL (32.0-36.0) 04/24/19 04:46 RDW 17.0 % (11.5-14.0) H 04/24/19 04:46 Plt Count 102 10^3/uL (150-450) L 04/24/19 04:46 Lymph % (Auto) Not Reportable 04/24/19 04:46 [place] % (Auto) Not Reportable 04/24/19 04:46 Eos % (Auto) Not Reportable 04/24/19 04:46 Baso % (Auto) Not Reportable 04/24/19 04:46 Absolute Neuts (auto) Not Reportable 04/24/19 04:46 Absolute Lymphs (auto) Not Reportable 04/24/19 04:46 Absolute Monos (auto) Not Reportable 04/24/19 04:46 Absolute Eos (auto) Not Reportable 04/24/19 04:46 Absolute Basos (auto) Not Reportable 04/24/19 04:46 Total Counted 100 04/24/19 04:46 Seg Neutrophils % Not Reportable 04/24/19 04:46 Seg Neuts % (Manual) 93 % (42-78) H 04/24/19 04:46 Band Neutrophils % 6 % (3-5) H 04/23/19 06:01 Lymphocytes % (Manual) 2 % (13-45) L 04/24/19 04:46 Atypical Lymphs % 1 % (0) 04/22/19 05:47 Monocytes % (Manual) 3 % (3-13) 04/24/19 04:46 Eosinophils % (Manual) 2 % (0-6) 04/24/19 04:46 Basophils % (Manual) 0 % (0-2) 04/24/19 04:46 Abs Neuts (Manual) 8.9 10^3/uL (1.7-8.2) H 04/24/19 04:46 Abs Lymphs (Manual) 0.2 10^3/uL (0.5-4.7) L 04/24/19 04:46 Abs Monocytes (Manual) 0.3 10^3/uL (0.1-1.4) 04/24/19 04:46 Absolute Eos (Manual) 0.2 10^3/uL (0.0-0.6) 04/24/19 04:46 Abs Basophils (Manual) 0.0 10^3/uL (0.0-0.2) 04/24/19 04:46 Toxic Granulation 2+ 04/22/19 05:47 Toxic Vacuolation PRESENT 04/22/19 05:47 Dohle Bodies PRESENT 04/22/19 05:47 Platelet Comment DECREASED 04/24/19 04:46 Polychromasia SLIGHT 04/22/19 05:47 Poikilocytosis 1+ 04/24/19 04:46 Anisocytosis 1+ 04/24/19 04:46 Target Cells SLIGHT 04/22/19 05:47 Tear Drop Cells SLIGHT 04/24/19 04:46 Ovalocytes 1+ 04/24/19 04:46 Schistocytes SLIGHT 04/20/19 17:38 PT 19.5 SEC (11.4-15.4) H 04/20/19 17:38 INR 1.63 04/20/19 17:38 VBG pH 7.41 (7.30-7.42) 04/20/19 17:38 VBG pCO2 37.1 mmHg (35-63) 04/20/19 17:38 VBG HCO3 22.7 mmol/L (20-32) 04/20/19 17:38 VBG Base Excess -1.6 mmol/L 04/20/19 17:38 Sodium 138.8 mmol/L (137-145) 04/22/19 05:47 Potassium 4.3 mmol/L (3.6-5.0) 04/22/19 05:47 Chloride 105 mmol/L (98-107) 04/22/19 05:47 Carbon Dioxide 25 mmol/L (22-30) 04/22/19 05:47 Anion Gap 9 (5-19) 04/22/19 05:47 BUN 16 mg/dL (7-20) 04/22/19 05:47 Creatinine 0.57 mg/dL (0.52-1.25) 04/23/19 06:01 Est GFR ( Amer) > 60 (>60) 04/23/19 06:01 Est GFR (MDRD) Non-Af > 60 (>60) 04/23/19 06:01 Glucose 93 mg/dL (75-110) 04/22/19 05:47 POC Glucose 103 mg/dL (70-110) 04/24/19 08:11 Hemoglobin A1c % 6.2 % (4.7-6.0) H 04/22/19 05:47 Lactic Acid 4.6 mmol/L (0.7-2.1) H 04/21/19 13:40 Calcium 9.1 mg/dL (8.4-10.2) 04/22/19 05:47 Magnesium 1.9 mg/dL (1.6-2.3) 04/22/19 05:47 Total Bilirubin 2.4 mg/dL (0.2-1.3) H 04/20/19 17:38 Direct Bilirubin 0.2 mg/dL (0.0-0.4) 04/20/19 17:38 Neonat Total Bilirubin Not Reportable 04/20/19 17:38 Neonat Direct Bilirubin Not Reportable 04/20/19 17:38 Neonat Indirect Bili Not Reportable 04/20/19 17:38 AST 31 U/L (17-59) 04/20/19 17:38 ALT 17 U/L (<50) 04/20/19 17:38 Alkaline Phosphatase 104 U/L (38-126) 04/20/19 17:38 Total Protein 6.9 g/dL (6.3-8.2) 04/20/19 17:38 Albumin 3.6 g/dL (3.5-5.0) 04/20/19 17:38 TSH 0.49 uIU/mL (0.47-4.68) 04/22/19 05:47 Urine Color PADDY 04/21/19 01:08 Urine Appearance SLIGHTLY-CLOUDY 04/21/19 01:08 Urine pH 5.0 (5.0-9.0) 04/21/19 01:08 Ur Specific [place] 1.025 04/21/19 01:08 Urine Protein 100 mg/dL (NEGATIVE) H 04/21/19 01:08 Urine Glucose (UA) NEGATIVE mg/dL (NEGATIVE) 04/21/19 01:08 Urine Ketones NEGATIVE mg/dL (NEGATIVE) 04/21/19 01:08 Urine Blood SMALL (NEGATIVE) H 04/21/19 01:08 Urine Nitrite (Reflex) NEGATIVE (NEGATIVE) 04/21/19 01:08 Urine Bilirubin NEGATIVE (NEGATIVE) 04/21/19 01:08 Urine Urobilinogen NEGATIVE mg/dL (<2.0) 04/21/19 01:08 Leukocyte Esterase Rfl NEGATIVE (NEGATIVE) 04/21/19 01:08 Urine RBC (Auto) 4 /HPF 04/21/19 01:08 U Hyaline Cast (Auto) 1 /LPF 04/21/19 01:08 Urine WBC (Reflex) 3 /HPF 04/21/19 01:08 Squamous Epi Cells Auto <1 /HPF 04/21/19 01:08 Urine Mucus (Auto) MANY /LPF 04/21/19 01:08 Urine Ascorbic Acid 40 (NEGATIVE) H 04/21/19 01:08 Time Trough Drawn 0601 04/23/19 06:01 Vancomycin Trough 13.9 ug/mL (5.0-20.0) 04/23/19 06:01 Monotest NEGATIVE (NEGATIVE) 04/20/19 21:20 Influenza A (Rapid) NEGATIVE (NEGATIVE) 04/20/19 17:57 Influenza B (Rapid) NEGATIVE (NEGATIVE) 04/20/19 17:57 Slides for Path Review PATHOLOGIST REVIEWED 02/20/20 05:47 Impressions: Chest X-Ray 04/20/19 17:33 IMPRESSION: No acute cardiopulmonary process. Cervical Spine CT 04/20/19 20:21 IMPRESSION: No acute cervical spinal fracture is identified. Head CT 04/20/19 20:21 IMPRESSION: No acute intracranial abnormality is identified. Findings suggesting chronic sinusitis Generalized atrophy with microvascular ischemic changes. Plan Time Spent: Less than 30 Minutes Stroke Is this a Stroke Patient?: No Acute Heart Failure - Is this a Heart Failure Patient?: No
== END 2019-04-26 14:20 | disposition home health service (06) | DRG 808 ==
LOC: ER 17:30 → EH 04-21 04:11 → 3S 04-21 05:18
PROVIDERS: ADMIT Emergency Medicine; ATTEND Emergency Medicine
DX: D70.9 Neutropenia, unspecified (principal); E43 Unspecified severe protein-calorie malnutrition; C16.9 Malignant neoplasm of stomach, unspecified; I48.19 Other persistent atrial fibrillation; C79.9 Secondary malignant neoplasm of unspecified site; Z68.1 Body mass index [BMI] 19.9 or less, adult; S09.90XA Unspecified injury of head, initial encounter; R50.81 Fever presenting with conditions classified elsewhere; I10 Essential (primary) hypertension; W18.2XXA Fall in (into) shower or empty bathtub, initial encounter; Y92.9 Unspecified place or not applicable; E11.9 Type 2 diabetes mellitus without complications; N40.0 Benign prostatic hyperplasia without lower urinary tract symptoms; E86.0 Dehydration; Z92.21 Personal history of antineoplastic chemotherapy; Z79.899 Other long term (current) drug therapy; Z87.11 Personal history of peptic ulcer disease; Z90.3 Acquired absence of stomach [part of]; Z87.891 Personal history of nicotine dependence; Z88.7 Allergy status to serum and vaccine; Z85.46 Personal history of malignant neoplasm of prostate
CPT/HCPCS: 36415; 51701; 70450; 71045; 72125; 80048; 80053; 80202; 81001; 82565; 82803; 82962; 83036; 83605; 83735; 84443; 85025; 85610; 86308; 87040; 87804; 93005; 93010; 93306; 96361; 96365; 96367; 99285; J0692; J1644; J3370; J3490; J7030; J7060; J7120

== ENCOUNTER → 2019-04-27 | Outpatient (CLI) | payer MEDICARE, OTHER ==
--- NOTE | 2019-04-28 15:07 | RADIOLOGY REPORT (SQ) ---
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 TECHNIQUE: Blood glucose level was verified. Above dose of FDG was injected intravenously. 2-D seg mented attenuation correction images were obtained from the base of the skull to the midthighs. Nonc ontrast CT images were obtained for attenuation correction and fusion with emission images. CT image s were performed without oral or intravenous contrast and are not sensitive for parenchymal lesions. A series of overlapping emission PET images were obtained. Images reviewed and manipulated at [facility] work station by the radiologist. Images stored on PACS. LIMITATIONS: None. FINDINGS: HEAD AND NECK: There is focal uptake centrally involving the mandible. No CT abnormalitie s. This could be artifact or related to dental disease. CHEST: There is a large left upper lobe cavitary mass. SUV measures as high as 5.0. The cavitary le jake measures 8.5 x 5.4 cm. It is subpleural in location. This could represent metastatic disease o r infectious process. Primary neoplasm cannot be excluded. ABDOMEN AND PELVIS: No areas of abnormal metabolic activity in the abdomen or pelvis. Expected physi ologic activity is present in the genitourinary system and bowel. PROXIMAL LOWER EXTREMITIES: No areas of abnormal metabolic activity in the soft tissues of the lower extremities. BONES: No abnormal metabolic activity in the visualized skeleton. ADDITIONAL CT FINDINGS: There is a 2nd nodular density in the left base measuring 1.4 cm. This demon strates no abnormal metabolic activity OTHER: No other significant findings. IMPRESSION: Large cavitary mass in the left upper lobe. SUV measures as high as 5.0. This could re present primary lung neoplasm. Infectious process cannot be excluded. Metastatic disease is thought to be on likely. TECHNICAL DOCUMENTATION: JOB ID: [id number] 2011 [employer]- All Rights Reserved Reading location - IP/workstation name: [email or web address]
== END ==
LOC: RAD 13:06
PROVIDERS: ATTEND Nurse Practitioner Family
DX: C16.9 Malignant neoplasm of stomach, unspecified (principal); C16.6 Malignant neoplasm of greater curvature of stomach, unspecified; R59.0 Localized enlarged lymph nodes
CPT/HCPCS: 78815; A9552

== ENCOUNTER → 2019-07-27 | Outpatient (CLI) | payer MEDICARE, OTHER ==
--- NOTE | 2019-07-27 15:33 | RADIOLOGY REPORT (SQ) ---
EXAM DESCRIPTION: PET CT SKULL/THIGH IMAGES COMPLETED DATE/TIME: 07/27/2019 10:49 am REASON FOR STUDY: MALIGNANT NEOPLASM OF STOMACH, UNSPECIFIED C16.9 MALIGNANT NEOPLASM OF STOMACH, U NSPECIFIED COMPARISON: PET from 04/27/2019. RADIONUCLIDE AND DOSE: 9.9 mCi F18 FDG The route of agent administration: Intravenous FASTING BLOOD SUGAR: 128 mg/dl CONTRAST TYPE AND DOSE: No CT contrast given. TECHNIQUE: Blood glucose level was verified. Above dose of FDG was injected intravenously. 2-D seg mented attenuation correction images were obtained from the base of the skull to the midthighs. Nonc ontrast CT images were obtained for attenuation correction and fusion with emission images. CT image s were performed without oral or intravenous contrast and are not sensitive for parenchymal lesions. A series of overlapping emission PET images were obtained. Images reviewed and manipulated at [facility] work station by the radiologist. Images stored on PACS. LIMITATIONS: None. FINDINGS: HEAD AND NECK: No areas of abnormal metabolic activity in the soft tissues of the head and neck. CHEST: The cavitary lesion in the left upper lobe that abuts the pleura has decreased in size and it measures 5.9 x 3.8 cm compared to 8.5 x 5.4 cm ; the FDG uptake in and around the lesion has resolved . The nodular opacities in the right upper lobe (image 69, 75 and 88 of series 3) are unchanged. Th ere is a 7 x 5 mm nodule in the anterior basal segment of the right lower lobe (image 116 of series 3 that has increased in size since 04/27/2027 and demonstrates no FDG uptake (the maximum SUV in the le jake is 1.3 which is below the background uptake in the mediastinum). There is no FDG avid mediastin al or hilar adenopathy. ABDOMEN AND PELVIS: The liver demonstrates homogeneous FDG uptake with a maximum SUV of 2.1. There i s expected physiologic ab take throughout the gastrointestinal and genitourinary tracts. No areas of abnormal metabolic activity are identified in the abdomen and pelvis. PROXIMAL LOWER EXTREMITIES: No areas of abnormal metabolic activity in the soft tissues of the lower extremities. BONES: No areas of abnormal metabolic activity in the axial and appendicular skeleton. ADDITIONAL CT FINDINGS: The ascending thoracic aorta measures 4.4 x 4.4 cm in diameter. There is mod erate atherosclerotic calcification of the coronary arteries. There are new tree-in-bud nodular opacities (image 116 of series 3) in the anterior basal segment of the right lower quadrant that demonstrate no abnormal FDG uptake on PET. 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 There is no retroperitoneal hemorrhage. The prostate gland is enlarged. The w all of the urinary bladder is thickened. There is no bowel obstruction. There is a 3 mm calculus within an inter pole calyx. There is no hydronephrosis. OTHER: No other findings. IMPRESSION: 1. The cavitary lesion in the left upper lobes that abuts the pleura has decreased in s ize and it measures 5.9 x 3.8 cm compared to 8.5 x 5.4 cm. The abnormal FDG uptake in and around the lesion has resolved. 2. New nodular opacities in the anterior basal segment of the right lower lobe that demonstrate no a bnormal FDG up take on PET. Given the tree-in-bud configuration of some of these opacities it is pos sible that they could represent an infectious or inflammatory process and a follow-up CT in 3 months is recommended to ensure resolution. TECHNICAL DOCUMENTATION: JOB ID: [id number] 2010 [employer]- All Rights Reserved Reading location - IP/workstation name: [email or web address]
== END ==
LOC: RAD 07:46
PROVIDERS: ATTEND Nurse Practitioner Family
DX: R91.8 Other nonspecific abnormal finding of lung field (principal); C16.9 Malignant neoplasm of stomach, unspecified
CPT/HCPCS: 78815; A9552

== ENCOUNTER → 2019-10-14 | Outpatient (CLI) | payer MEDICARE, OTHER ==
--- NOTE | 2019-10-14 11:40 | RADIOLOGY REPORT (SQ) ---
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 Images reviewed with lung, soft tissue and bone windows. Reconstructed coronal and sagittal MPR and MIP images reviewed. All images stored on PACS. All CT scanners at this facility use dose modulation, iterative reconstruction, and/or weight based d osing when appropriate to reduce radiation dose to as low as reasonably achievable (ALARA). [facility]: Dose Right [facility]: CareDose [facility]: Dose Right [facility]: Teradose 4D [facility]: [employer] RENAL FUNCTION: GFR > 60. RADIATION DOSE: . LIMITATIONS: None. FINDINGS: LUNGS AND PLEURA: [place] or pneumatocele in the left upper lobe not significantly changed. Occasional nodules in the upper lobes measuring up to about 4 mm on image 41. No developing nodules or infiltrate. No effusions. HILAR AND MEDIASTINAL STRUCTURES: No identified masses or abnormal nodes. HEART AND VASCULAR STRUCTURES: No aneurysm or dissection. No central pulmonary emboli. No pericardi al effusion. HARDWARE: None in the chest. UPPER ABDOMEN: See separate report of the CT of the abdomen. THYROID AND OTHER SOFT TISSUES: No masses. No adenopathy. BONES: No significant finding. OTHER: No other significant finding. IMPRESSION: Stable chest. No evidence of metastatic disease. TECHNICAL DOCUMENTATION: JOB ID: [id number] Quality ID # [id number]: Final reports with documentation of one or more dose reduction techniques (e.g., Au tomated exposure control, adjustment of the mA and/or kV according to patient size, use of iterative reconstruction technique) 2010 [employer]- All Rights Reserved Reading location - IP/workstation name: [email or web address]
--- NOTE | 2019-10-14 11:46 | RADIOLOGY REPORT (SQ) ---
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 Images reviewed with lung, soft tissue, and bone windows. Reconstructed coronal and sagittal MPR images reviewed. Delayed images for evaluat ion of the urinary system also acquired and evaluated. All images stored on PACS. All CT scanners at this facility use dose modulation, iterative reconstruc tion, and/or weight based dosing when appropriate to reduce radiation dose to as low as reasonably ac hievable (ALARA). [facility]: Dose Right [facility]: CareDose [facility]: Dose Right [facility]: Teradose 4D [facility]: [email or web address] CONTRAST TYPE AND DOSE: contrast/concentration: Isovue 350.00 mmol/ml; Total Contrast Delivered: 72. 0 ml; Total Saline Delivered: 65.0 ml RENAL FUNCTION: GFR > 60. RADIATION DOSE: CT Rad equipment meets quality standard of care and radiation dose reduction techniq ues were employed. CTDIvol: 4.4 - 4.5 mGy. DLP: 457 mGy-cm. . LIMITATIONS: None. FINDINGS: LOWER CHEST: See separate report of the CT of the chest. LIVER: Normal size. Stable low-density lesions in the posterior segment of the right lobe, largest 2 cm. No dilated ducts. SPLEEN: Normal size. No focal lesions. PANCREAS: No masses. No significant calcifications. No adjacent inflammation or peripancreatic fluid collections. Pancreatic duct not dilated. GALLBLADDER: No identified stones by CT criteria. No inflammatory changes to suggest cholecystitis. ADRENAL GLANDS: No significant masses or asymmetry. RIGHT KIDNEY AND URETER: No solid masses. No significant calcifications. No hydronephrosis or hyd roureter. LEFT KIDNEY AND URETER: No solid masses. No significant calcifications. No hydronephrosis or hydr oureter. AORTA AND VESSELS: Intact aortic endograft, SMA and bilateral renal artery stents. RETROPERITONEUM: No retroperitoneal adenopathy, hemorrhage or masses. BOWEL AND PERITONEAL CAVITY: Partial gastrectomy. No dilated loops. APPENDIX: Not visualized. ABDOMINAL WALL: No masses. No hernias. BONES: No significant or acute findings. OTHER: No other significant finding. IMPRESSION: No evidence of metastatic disease TECHNICAL DOCUMENTATION: JOB ID: [id number] Quality ID # [id number]: Final reports with documentation of one or more dose reduction techniques (e.g., Au tomated exposure control, adjustment of the mA and/or kV according to patient size, use of iterative reconstruction technique) 2010 [employer]- All Rights Reserved Reading location - IP/workstation name: [email or web address]
== END ==
LOC: RAD 09:00
PROVIDERS: ATTEND Internal Medicine Hematology & Oncology
DX: C16.9 Malignant neoplasm of stomach, unspecified (principal)
CPT/HCPCS: 71260; 74160; 82565

== ENCOUNTER 2019-11-11 06:20 | Day surgery (SDC) | payer MEDICARE, OTHER ==
[2019-11-03 10:11] LABS: HEMATOCRIT 30.4 % (37.9-51.0); MEAN CORPUSCULAR VOLUME 88 fl (80-97); PLATELET COUNT 167 10^3/uL (150-450); RED BLOOD COUNT 3.45 10^6/uL (4.35-5.55); RED CELL DISTRIBUTION WIDTH 18.5 % (11.5-14.0); WHITE BLOOD COUNT 4.3 10^3/uL (4.0-10.5)
--- NOTE | 2019-11-03 15:18 | EKG REPORT ---
SEVERITY:- BORDERLINE ECG - SINUS RHYTHM NONSPECIFIC ST-T CHANGES LATERAL LEADS : Confirmed by: Amadou Valerio MD 03-Nov-2019 15:17:47
[2019-11-11] MEDS ORDERED: PROPOFOL INJ 200 MG/20 ML VIAL IV ONE (07:28)
[2019-11-11] MEDS ORDERED: LIDOCAINE 2% INJ-PF (20 MG/ML) 10 ML AMPUL ONE (07:28)
--- NOTE | 2019-11-11 08:16 | Discharge Summary ---
Discharge Summary (SDC) - Discharge Final Diagnosis: 1. Status post subtotal gastrectomy Rosenda-en-Y reconstruction graft 2. Status post EGD, colonoscopy with no evidence of malignancy Date of Surgery: 11/11/19 Discharge Date: 11/11/19 Condition: Good Treatment or Instructions: [address] [address] POST ENDOSCOPY DISCHARGE INSTRUCTIONS 1. Diet: Start clear liquids that a regular diet as tolerated. 2. Resume all preoperative medications. All oral anticoagulants and aspirins can be resumed 24 hours after procedure. 3. If a polypectomy was performed some bleeding per rectum may occur. This should stop within 3 days. If not, please contact the office. 4. If you had a colonoscopy you may experience some bloating and delayed return of normal bowel function for several days, your regular bowel movement pattern should resume within a week. 5. Please contact [facility] at to make an appointment with Dr. Hernandez for 1 to 3 weeks following procedure. 6. If you have any questions or concerns regarding your care,treatment plan or follow up, please contact our office. 7. Per clinical guidelines we recommend you undergo a repeat colonoscopy in 5-7 years. Discharge Diet: Regular Discharge Activity: Activity As Tolerated Home Care Assistance: None Needed Report the Following to Your Physician Immediately: Shortness of Breath, Increase in Pain, Fever over 101 Degrees
--- NOTE | 2019-11-11 08:22 | Operative Report ---
Operative Report DATE OF SURGERY: 11/11/19 PREOPERATIVE DIAGNOSIS: 1. Unexplained weight loss. 2. Anemia. 3. History of subtotal gastrectomy and Rosenda-en-Y reconstruction POSTOPERATIVE DIAGNOSIS: Same with. 1. No endoscopic evidence of malignancy. 2. Scattered sigmoid diverticulosis OPERATION: 1. Isecpaog-[id number] with biopsy of gastrojejunal anastomosis. 2. Total colonoscopy to cecum with photodocumentation SURGEON: TAM AMAYA ANESTHESIA: LMAC TISSUE REMOVED OR ALTERED: Cold forceps biopsy of gastrojejunal anastomosis COMPLICATIONS: None ESTIMATED BLOOD LOSS: Scant INTRAOPERATIVE FINDINGS: See below PROCEDURE: Patient was taken from the preop holding area on the fifth floor to the endoscopy suite where appropriate monitoring devices were attached, and LMAC anesthesia induced. He was placed in the left lateral decubitus position. Mouthpiece inserted. Surgical plan surgical timeout were conducted. The flexible upper endoscope was advanced to the oropharynx, through the esophagus into the small gastric pouch which was approximately 150 cc volume. We then cannulated the gastrojejunal anastomosis, and advance the scope through the jejunal limb to approximately 100 cm. There was no evidence of tumor stricture bleeding or polyp. Photos were taken. A random biopsy was taken with a cold forceps device of the gastrojejunal anastomosis, bleeding minimal. In the small gastric pouch, approximately 150 cc volume estimated, there was no evidence of malignancy. Photos were taken. The GE junction was approximately 40 cm from the incisor. The scope was brought back through the esophagus which showed no evidence of varices, stricture bleeding or polyp. The scope was withdrawn with the patient oropharynx. He tolerated procedure well. We now switched equipment and proceeded with colonoscopy. A rectal exam was performed which revealed loose sphincter tone, but no anorectal pathology by palpation. The adult colonoscope was advanced through the colon all the way to the cecum.. This was an excellent study and well-prepped bowel. The terminal ileum was cannulated with the scope for approximately 15 cm. No pathology seen. The scope was withdrawn with the length the colon second mucosa carefully. There was scattered sigmoid diverticulosis, but no evidence of stricture bleeding polyp or tumor. Again, this was an excellent study. The scope was retroflexed in the anorectal canal. No other pathology visualized. The scope was withdrawn to the patient's anus. He tolerated procedure well. Summary: No upper or lower endoscopic evidence of malignancy, or other pathology to explain patient's weight loss. Plan: Resume preoperative medications, diet and activity; patient will be an appropriate candidate for follow-up colonoscopy in 5 to 7 years.
[2019-11-11 09:18] VITALS: BP 176/88
== END 2019-11-11 09:00 | disposition home or self-care (01) ==
LOC: END 06:20
PROVIDERS: ATTEND Surgery
DX: K29.50 Unspecified chronic gastritis without bleeding (principal); K57.30 Diverticulosis of large intestine without perforation or abscess without bleeding; Z03.818 Encounter for observation for suspected exposure to other biological agents ruled out; D64.9 Anemia, unspecified; Z98.84 Bariatric surgery status; Z85.028 Personal history of other malignant neoplasm of stomach; Z87.11 Personal history of peptic ulcer disease; Z95.5 Presence of coronary angioplasty implant and graft; I10 Essential (primary) hypertension; I71.4 Abdominal aortic aneurysm, without rupture; Z87.891 Personal history of nicotine dependence
CPT/HCPCS: 43239; 45378; 93005; 36415; 85027; 88305 ×2; 93010; 00813; U0003; J2704; J3490; C9803; 813; 87635